=== PATIENT | female | born 1940 | race Caucasian/White ===

== ENCOUNTER 2020-01-05 22:41 | Inpatient (IN) | payer MEDICARE, OTHER, SELFPAY ==
--- NOTE | ~2020-01-05 | XR_ITS ---
EXAMINATION: XR lumbar spine 1V INDICATION: Severe back pain TECHNIQUE: Single AP view of the lumbar spine is obtained. COMPARISON: None available FINDINGS: There are 20 degrees of lumbar dextroscoliosis. Vertebral body heights appear normal on thi s single AP view. There is moderate lower lumbar facet osteoarthritis. There appears to be moderate l oss of intervertebral disc space height throughout the lumbar spine. Contrast from yesterday's CT exa mination opacifies the urinary bladder. The visualized lung bases are clear. IMPRESSION: 1. Lumbar dextroscoliosis and mild spondylosis without acute findings identified, sensitivity limited by single AP view. Reviewed, dictated and finalized at location B. IMPRESSION: 1. Lumbar dextroscoliosis and mild spondylosis without acute findings identifie d, sensitivity limited by single AP view.
--- NOTE | ~2020-01-05 | CT_ITS ---
EXAMINATION: CTA chest PE protocol DATE: 01/09/2020 07:15 INDICATION: Severe back pain, COVID positive TECHNIQUE: Computed tomography angiography (CTA) of the chest was performed with 100 mL Omnipaque-350 intravenous contrast timed to evaluate the pulmonary arteries. Coronal maximum intensity projection 3D-reconstructions were created by the technologist. The dose-length product (DLP) was 181.33 mGy-cm. Automated exposure control and iterative reconstruction technique were employed. COMPARISON: None. FINDINGS: The pulmonary arteries are well-opacified. No pulmonary embolism is identified. There is a 1.6 x 0.7 cm nodule of the right lung apex. A 3 mm nodule is present in the left lower lobe on image 96. There is a 6 mm nodule of the left lower lobe on image 40. There is mild atelectasis of the lung bases. No pleural effusion or pneumothorax is identified. Cardiomegaly is noted. There are no patholo gically enlarged thoracic lymph nodes. Calcified left hilar lymph nodes are consistent with old granu lomatous disease. There is moderate thoracic spondylosis. IMPRESSION: 1. No pulmonary embolism. 2. Bilateral lung nodules measuring up to 1.6 cm x 0.7 in the right lung apex. Follow-up CT in three months is recommended. Reviewed, dictated and finalized at location A.
--- NOTE | ~2020-01-05 | XR_ITS ---
EXAMINATION: XR chest 1V portable DATE: 01/13/2020 13:34 INDICATION: COVID-19 pneumonia. TECHNIQUE: A single frontal view of the chest was obtained. COMPARISON: Chest single view 01/09/2020, chest CT 01/09/2020 FINDINGS: There is mild scarring at right lung apex. No pleural effusion or pneumothorax. The heart s ize is normal. Calcified left hilar and mediastinal lymph nodes are consistent with old granulomatous disease. IMPRESSION: 1. Mild scarring at right lung apex. Reviewed, dictated and finalized at location B.
--- NOTE | ~2020-01-05 | XR_ITS ---
EXAMINATION: XR chest 1V portable INDICATION: Cough and shortness of breath TECHNIQUE: Portable AP chest at 2309 hours COMPARISON: 08/29/2011 FINDINGS: The lungs are hyperinflated but free of acute opacities. There is no pleural effusion or pn eumothorax. The cardiomediastinal silhouette is normal. IMPRESSION: 1. No acute cardiopulmonary abnormality. Reviewed, dictated and finalized at location A.
--- NOTE | ~2020-01-05 | XR_ITS ---
EXAMINATION: XR chest 1V portable INDICATION: Atrial fibrillation with RVR TECHNIQUE: Portable AP chest at 0608 hours COMPARISON: 01/05/2020 FINDINGS: There are minimal airspace opacities of the lung bases. No pleural effusion or pneumothorax is identified. The cardiomediastinal silhouette is normal. There is calcified atherosclerosis. IMPRESSION: 1. Minimal airspace opacities of the lung bases, consistent with atelectasis versus pneumonia. Reviewed, dictated and finalized at location A. IMPRESSION: 1. Minimal airspace opacities of the lung bases, consistent with atelectasis ve rsus pneumonia.
[2020-01-05 22:39] VITALS: BP 135/65; PULSE 87; RESP 20; TEMP 38.8; O2SAT 89; O2SAT 97
--- NOTE | 2020-01-05 22:41 | ECG_ITS ---
Measurements Intervals [place] Rate: 85 P: 65 AL: 157 QRS: -66 QRSD: 105 T: 59 QT: 353 QTc: 421 Interpretive Statements SINUS RHYTHM LEFT AXIS DEVIATION CANNOT RULE OUT SEPTAL INFARCT, AGE INDETERMINATE BASELINE ARTIFACT- I, II, III, AVF, V4-V6 ABNORMAL ECG Electronically Signed On 01-06-2020 6:56:13 CDT by Lucien Gaffney D.O.
--- NOTE | 2020-01-05 22:51 | ED.WEAKNESS ---
HPI - Weakness General Chief complaint: Weakness Stated complaint: fatigue Source: RN notes reviewed History of Present Illness HPI Narrative: Patient presents emergency department from home via EMS for weakness. Patient states she has been feeling weak for the past 6 days. States is been associated with decreased appetite. States that her is also been ill and is currently being evaluated in the emergency department for similar complaints. Patient denies having any chest pain shortness of breath or abdominal pain. Does note fever. Denies any other symptoms at this time Related Data Home Medications Medication Instructions Recorded Confirmed Unable to Obtain Home Medications 01/05/20 01/05/20 Allergies Allergy/AdvReac Type Severity Reaction Status Date / Time No Known Allergies Allergy Verified 01/05/20 23:10 Review of Systems Review of Systems: Narrative: Gen.: Reports fever Eyes: Denies eye pain or visual change ENT: Denies congestion Respiratory: Denies shortness of breath or cough CV: Denies chest pain or palpitations GI: Denies abdominal pain nausea, emesis or diarrhea Musculoskeletal: Denies back pain or muscle pain Neuro: Reports weakness Skin: Denies rash Except as documented, all other systems reviewed and negative COUNT INCLUDES THE [facility] Past Medical History Medical History (Updated 01/06/20 @ 00:29 by Aashish Salinas DO) Patient denies significant medical history Social History Social History (Updated 01/05/20 @ 23:35 by Aashish Salinas DO) Smoking status: Never smoker Exam Narrative: Exam Narrative: APPEARANCE: No acute distress, nontoxic, resting in bed EYES: PERRL HEENT: Normocephalic, atraumatic, oromucosa dry RESPIRATORY: No respiratory distress Clear to auscultation bilaterally with no rhonchi wheezing or rales. CARDIOVASCULAR: Regular rate and rhythm without murmurs rubs or gallops. ABDOMINAL: Soft, nontender, nondistended, no rebound or guarding MUSCULOSKELETAl: Moves all extremities. No clubbing, cyanosis or edema. NEURO: Awake and alert. Following commands, speech normal, no focal deficits SKIN:: Warm, dry. No rashes lesions or abrasions PSYCHIATRIC: Normal affect/mood, Course Course Emergency Course: Patient currently with O2 sat in the upper 80s on room air placed on 2 L nasal cannula with improvement. Patient's currently with similar complaints with fever and chest x-ray suspicious for COVID-19 patient also being tested Discussed with Dr. Kuhn presentation and work-up. Agrees with admission at this time Discussed with patient and family results of workup and diagnosis. Discussed need for admission. Patient and family understand and agree to current treatment plan Vital Signs Vital signs: Vital Signs Temperature 101.8 F H 01/05/20 22:39 Pulse Rate 87 01/05/20 22:39 Respiratory Rate 20 01/05/20 22:39 Blood Pressure 135/65 01/05/20 22:39 Pulse Oximetry 89 L 01/05/20 22:39 Temperature 99.0 F 01/06/20 00:25 Pulse Rate 70 01/06/20 00:25 Respiratory Rate 15 01/06/20 00:25 Blood Pressure 108/60 01/06/20 00:25 Pulse Oximetry 96 01/06/20 00:25 MDM - Weakness Lab Data Result diagrams: 01/05/20 23:09 01/05/20 23:09 Labs: Lab Results 01/05/20 01/05/20 01/05/20 Range/Units 23:09 23:09 23:09 WBC 5.2 (4.5-10.0) K/mm3 RBC 4.76 (4.2-5.4) M/mm3 Hgb 14.4 (12.0-15.0) g/dL Hct 43.7 (37.0-47.0) % MCV 91.8 (80-100) fl MCH 30.3 (26-34) pg MCHC 33.0 (32-36) g/dl RDW 12.2 (11.5-14.5) % Plt Count 206 (150-375) k/mm3 MPV 10.1 (7.4-10.4) fl Immature Gran % (Auto) 0.8 H (0-0.5) % Neut % (Auto) 59.8 (45.5-73.1) % Lymph % (Auto) 28.4 (18.3-44.2) % [place] % (Auto) 10.4 H (2.6-8.5) % Eos % (Auto) 0.0 (0-4.4) % Baso % (Auto) 0.6 (0.2-1.2) % Lymph # (Auto) 1.47 (0.9-3.2) K/mm3 [place] # (Auto) 0.5 (0.1-0.6) K/mm3 Eos # (Auto)
[2020-01-05] MEDS: SODIUM CHLORIDE 0.9% IV 1,000 ML 999 ML IV CONT (23:14)
[2020-01-05 23:19] LABS: Basophils Percent Auto 0.6 % (0.2-1.2); Hematocrit 43.7 % (37.0-47.0); Hemoglobin 14.4 g/dL (12.0-15.0); Immature Granulocyte Absolute 0.04 K/mm3 (0.00-0.031); Immature Granulocyte Percent A 0.8 % (0-0.5); Lymphocytes Absolute Auto 1.47 K/mm3 (0.9-3.2); Lymphocytes Percent Auto 28.4 % (18.3-44.2); Mean Corpuscular Hemoglobin 30.3 pg (26-34); Mean Corpuscular Volume 91.8 fl (80-100); Mean Platelet Volume 10.1 fl (7.4-10.4); Monocytes Absolute Auto 0.5 K/mm3 (0.1-0.6); Monocytes Percent Auto 10.4 % (2.6-8.5); Neutrophils Absolute Auto 3.1 K/mm3 (1.3-6.7); Neutrophils Percent Auto 59.8 % (45.5-73.1); Platelet Count Result 206 k/mm3 (150-375); Red Blood Count 4.76 M/mm3 (4.2-5.4); Red Cell Distribution Width 12.2 % (11.5-14.5); White Blood Count 5.2 K/mm3 (4.5-10.0)
[2020-01-05 23:27] LABS: Prothrombin Time 13.1 Seconds (11.1-14.7)
[2020-01-05 23:30] LABS: Alanine Aminotransferase 20 U/L (4-35); Alkaline Phosphatase 69 U/L (38-126); Anion Gap 12.7 mmol/L (7-16); Aspartate Amino Transferase 34 U/L (14-36); Bilirubin,Total 0.5 mg/dL (0.2-1.3); Blood Urea Nitrogen 24 mg/dL (7-17); Calcium 8.6 mg/dL (8.4-10.2); Carbon Dioxide 25 mmol/L (22-30); Chloride 97 mmol/L (98-107); Estimated Glomerular Filt Rate > 60; Glucose 91 mg/dL (65-105); Potassium 4.7 mmol/L (3.4-5.0); Sodium 130 mmol/L (137-145)
[2020-01-05 23:39] VITALS: BP 118/64; PULSE 77; RESP 18; O2SAT 98
[2020-01-05 23:41] VITALS: TEMP 37.2
[2020-01-05 23:42] VITALS: TEMP 37.2
[2020-01-05 23:57] LABS: Lactic Acid Reflex 0.5 mmol/L (0.7-2.1)
[2020-01-06] VITALS (19 sets, daily range): BP systolic 95–138; BP diastolic 48–80; PULSE 61–79; RESP 15–22; TEMP 36.6–37.2; O2SAT 87–97; BMI 19.9
--- NOTE | 2020-01-06 01:00 | ADMGEN ---
This patient, Marie Moreira, was admitted to 3 [facility] Surg Room 330-02. Patient/family oriented to hospital policies and general routines including ID bracelet, bed and alarms, visiting hours, pain management, procedures, bathroom and other care routines, personal items, smoking policy, room service/diet, and visiting hours. Valuables list has been completed. Information on how to activate the Rapid Response Team has been discussed. Patient/Family are encouraged to report perceived risks to care and to ask questions if they do not understand what they are told or what they should do.
--- NOTE | 2020-01-06 01:38 | PM.IMHP ---
H&P: HPI History of Present Illness Date/Time: 01/06/20 01:38 Chief complaint: COVID-19 suspected, acute respiratory failure with Narrative: This is an 79 year old female who is previously known to be healthy who presented to the hospital with her angelo complaining of generalized weakness and decreased appetite for the past 5 days. She denies any shortness of breath, cough, fevers, chills, chest pain, sore throat, abdominal pain, dysuria, hematuria, rectal bleeding or LE swelling. The patient was found to be desaturating down to the 80s in the ER tonight and required supplemental oxyge. The patient was tested for COVID-19 and we were asked to admit the patient to the hospital for further care. She denies any other symptoms. Review of Systems Review of Systems: All systems reviewed & are unremarkable except as noted in HPI and below PMFSH Past Medical History Medical History Patient denies significant medical history Social History Social History Smoking packs per day: 1 Smoking cigarettes per day: 20.0 Years smoked: 20 Smoking pack-years: 20.00 Smoking status: Former smoker Tobacco type: cigarettes Alcohol intake: never Substance use: never Gender identity (if verbalized by the patient): Female Spiritual care concerns: No Comments past surgical and family history are reviewed and are noncontributory. Meds Home Medications and Allergies Home Medications Medication Instructions Recorded Confirmed Type albuterol sulfate INHALATION PRN 01/06/20 History gabapentin 100 mg PO DAILY 01/06/20 01/06/20 History lisinopril 20 mg PO DAILY 01/06/20 01/06/20 History Allergies Allergy/AdvReac Type Severity Reaction Status Date / Time No Known Allergies Allergy Verified 01/05/20 23:10 Vital Signs Vital Signs - 24 hr 01/05/20 22:39 01/05/20 23:39 01/05/20 23:41 Temperature 38.8 C H 37.2 C Pulse Rate 87 77 Respiratory Rate 20 18 Blood Pressure 135/65 118/64 Pulse Oximetry 97 98 01/05/20 23:42 01/06/20 00:19 01/06/20 00:23 Temperature 37.2 C 37.2 C 37.2 C Pulse Rate 67 69 Respiratory Rate 17 20 Blood Pressure 95/48 L 108/60 Pulse Oximetry 96 97 01/06/20 00:25 01/06/20 00:40 Temperature 37.2 C 36.8 C Pulse Rate 70 64 Respiratory Rate 15 18 Blood Pressure 108/60 131/63 Pulse Oximetry 96 97 Exam Const: General: cooperative, no acute distress, alert, awake and other (on 2 liters of oxygen via NC ) Nutritional Appearance: well nourished Orientation/consciousness: patient oriented x3 HENMT: Head: normal to inspection General nose exam: Normal external nose present Face and sinus: normal facial exam Mouth: Yes Normal oral and palatal mucosa present and Yes oropharynx normal Eyes: Pupils: Equal, round and reactive pupils present EOM: EOMs intact bilaterally Neck: Neck: supple and no JVD Thyroid: thyroid normal Lymphatic: lymphadenopathy not noted Resp: Effort & Inspection: normal respiratory effort Auscultation: crackles and diminished lung sounds Cardio: Rate: regular rate Rhythm: regular rhythm Heart sounds: no murmurs GI: Inspection: normal to inspection Auscultation: normal bowel sounds Skin: General skin exam: normal color and no rashes or lesions noted Neuro: General: patient oriented x3 Cranial nerves: Yes CN's II-XII intact bilaterally and Yes Equal, round and reactive pupils present Speech: normal speech Motor exam (neuro): 5/5 motor strength present throughout Sensory Exam: normal sensation Extrem: General: normal to inspection and no edema Psych: Mental Status: mental status grossly normal Affect: normal affect H&P: Results Labs Labs: Short CBC 01/05/20 Range/Units 23:09 WBC 5.2 (4.5-10.0) K/mm3 Hgb 14.4 (12.0-15.0) g/dL Hct 43.7 (37.0-47.0) % Plt Count 206 (150-375) k/mm3 BMP
--- NOTE | 2020-01-06 04:51 | ECG_ITS ---
Measurements Intervals [place] Rate: 46 P: 70 SC: 173 QRS: -66 QRSD: 103 T: 50 QT: 394 QTc: 347 Interpretive Statements SINUS BRADYCARDIA ATRIAL PREMATURE COMPLEXES LEFT AXIS DEVIATION BASELINE ARTIFACT- AVR, AVL, AVF BORDERLINE ECG Electronically Signed On 01-06-2020 6:59:32 CDT by Lucien Gaffney D.O.
[2020-01-06 06:20] LABS: Basophils Percent Auto 0.9 % (0.2-1.2); Hematocrit 40.7 % (37.0-47.0); Hemoglobin 13.1 g/dL (12.0-15.0); Immature Granulocyte Absolute 0.05 K/mm3 (0.00-0.031); Immature Granulocyte Percent A 1.1 % (0-0.5); Lymphocytes Absolute Auto 1.73 K/mm3 (0.9-3.2); Lymphocytes Percent Auto 36.9 % (18.3-44.2); Mean Corpuscular HGB Conc 32.2 g/dl (32-36); Mean Corpuscular Hemoglobin 30.1 pg (26-34); Mean Corpuscular Volume 93.6 fl (80-100); Mean Platelet Volume 10.1 fl (7.4-10.4); Monocytes Absolute Auto 0.5 K/mm3 (0.1-0.6); Monocytes Percent Auto 10.7 % (2.6-8.5); Neutrophils Absolute Auto 2.4 K/mm3 (1.3-6.7); Neutrophils Percent Auto 50.4 % (45.5-73.1); Platelet Count Result 189 k/mm3 (150-375); Red Blood Count 4.35 M/mm3 (4.2-5.4); Red Cell Distribution Width 12.1 % (11.5-14.5); White Blood Count 4.7 K/mm3 (4.5-10.0)
[2020-01-06 06:32] LABS: Alanine Aminotransferase 17 U/L (4-35); Albumin Level 3.5 g/dL (3.5-5.1); Alkaline Phosphatase 57 U/L (38-126); Anion Gap 13.4 mmol/L (7-16); Aspartate Amino Transferase 31 U/L (14-36); Bilirubin,Total 0.3 mg/dL (0.2-1.3); Blood Urea Nitrogen 23 mg/dL (7-17); Calcium 8.1 mg/dL (8.4-10.2); Carbon Dioxide 25 mmol/L (22-30); Chloride 100 mmol/L (98-107); Estimated CRCL calculation 53 ml/min; Estimated Glomerular Filt Rate > 60; Glucose 80 mg/dL (65-105); Potassium 4.4 mmol/L (3.4-5.0); Sodium 134 mmol/L (137-145)
[2020-01-06 08:09] LABS: CRP 1.6 mg/dL (<1.0)
[2020-01-06] MEDS: ALBUTEROL SULFATE (*SP) AEROSOL 1 PUFF 2 PUFF INHALATION ×4 (08:26→21:16)
[2020-01-06 12:00] LABS: SARS-CoV-2 RNA PCR Positive
--- NOTE | 2020-01-06 12:43 | PC.NURSE ---
Called and notified Dr. Espinoza that patient COVID test was positive.
--- NOTE | 2020-01-06 14:35 | PM.IMPN ---
Progress Note: A&P Assessment and Plan (1) Acute respiratory failure with hypoxia: Code(s): J96.01 - Acute respiratory failure with hypoxia Status: Acute Assessment and Plan: Admit to med-surg. supplemental oxygen as needed to maintain pulse ox >94%. Wean off of oxygen when possible. 01/06/20 14:35 patient is 79-year-old female presented emergency complaint fatigue tired, feverish while in the emergency depart patient was requiring oxygen is is desaturating while on the floor patient is also requiring oxygen to maintain her pulse ox, initially when presented patient had a fever of 101.8, patient COVID test is positive, complains of cough shortness of breath and fever, will start the patient on Remdesivir and dexamethasone per pharmacy protocol, will continue to monitor LFT and kidney function, will continue to monitor patient oxygen requirement and fever patient is isolation (2) Suspected 2019-nCoV infection: Code(s): Z20.828 - Contact with and (suspected) exposure to other viral communicable diseases Status: Acute Assessment and Plan: continue droplet isolation. Supportive care. COVID-19 result pending. Subjective Date/time seen: 01/06/20 14:35 patient is 79-year-old female presented emergency complaint fatigue tired, feverish while in the emergency depart patient was requiring oxygen is is desaturating while on the floor patient is also requiring oxygen to maintain her pulse ox, initially when presented patient had a fever of 101.8, patient COVID test is positive, complains of cough shortness of breath and fever, will start the patient on Remdesivir and dexamethasone per pharmacy protocol, will continue to monitor LFT and kidney function, will continue to monitor patient oxygen requirement and fever patient is isolation Review of Systems Review of Systems: All systems reviewed & are unremarkable except as noted in HPI and below Exam Narrative: Exam Narrative: patient is COVID positive patient is seen in the room but not examine, temperature is 98.5?, pulse is 74, respiratory is 18, pulse ox is 94% a 2 L nasal cannula, blood pressure 126/54. Const: General: comfortable and no acute distress HENMT: General nose exam: Normal nares present Eyes: Sclera: sclerae normal Resp: Effort & Inspection: normal respiratory effort GI: Other: not distended Skin: General skin exam: normal color Neuro: Speech: normal speech Extrem: General: normal to inspection Psych: Affect: Anxious affect present Objective Data Vital Signs Vital Signs: Vital Signs - 24 hr 01/05/20 22:39 01/05/20 23:39 01/05/20 23:41 Temperature 101.8 F H 99.0 F Pulse Rate 87 77 Respiratory Rate 20 18 Blood Pressure 135/65 118/64 Pulse Oximetry 97 98 01/05/20 23:42 01/06/20 00:19 01/06/20 00:23 Temperature 99.0 F 99.0 F 99.0 F Pulse Rate 67 69 Respiratory Rate 17 20 Blood Pressure 95/48 L 108/60 Pulse Oximetry 96 97 01/06/20 00:25 01/06/20 00:40 01/06/20 02:00 Temperature 99.0 F 98.3 F 98.8 F Pulse Rate 70 64 61 Respiratory Rate 15 18 18 Blood Pressure 108/60 131/63 98/55 L Pulse Oximetry 96 97 97 01/06/20 02:42 01/06/20 02:47 01/06/20 06:00 Temperature 98.6 F Pulse Rate 69 Respiratory Rate 18 Blood Pressure 119/61 Pulse Oximetry 87 L 92 96 01/06/20 08:00 01/06/20 08:33 01/06/20 10:00 Temperature 98.5 F Pulse Rate 67 74 Respiratory Rate 18 Blood Pressure 126/54 L Pulse Oximetry 93 92 94 01/06/20 12:00 Temperature Pulse Rate 79 Respiratory Rate Blood Pressure Pulse Oximetry Intake/Output Intake/Output: Intake & Output 01/03/20 01/04/20 01/05/20 01/06/20 23:59 23:59 23:59 23:59 Intake Total 1100 200 Balance 1100 200 Meds/Results Medications: Active Medications Generic Name Dose Route Start Last Admin Trade Name Freq PRN Reason Stop Dose Admin Albuterol 2 puff 01/06/20 08:00 01/06/20 12:04 Proventil Hfa INH
[2020-01-06] MEDS: REMDESIVIR 200 MG/NS 250 ML 200 MG/250 ML BAG 250 MG IVPB (16:16)
[2020-01-06] MEDS: LIDOCAINE 5% PATCH 2 PATCH TRANSDERM (16:16)
[2020-01-06] MEDS: DEXAMETHASONE 2 MG TABLET 6 MG PO (16:16)
[2020-01-06] MEDS: ACETAMINOPHEN 325 MG TABLET 650 MG PO (16:17)
[2020-01-06] MEDS: KETOROLAC 30 MG/ML VIAL (*BKC) 15 MG IV PUSH (21:54)
[2020-01-07] VITALS (17 sets, daily range): BP systolic 131–150; BP diastolic 61–86; PULSE 58–95; RESP 18–20; TEMP 36.4–36.9; O2SAT 73–97
[2020-01-07] MEDS: ACETAMINOPHEN 325 MG TABLET 650 MG PO ×2 (02:38→11:49)
[2020-01-07 06:29] LABS: Basophils Percent Auto 0.7 % (0.2-1.2); Hematocrit 45.2 % (37.0-47.0); Hemoglobin 14.8 g/dL (12.0-15.0); Immature Granulocyte Absolute 0.04 K/mm3 (0.00-0.031); Immature Granulocyte Percent A 1.3 % (0-0.5); Lymphocytes Absolute Auto 1.29 K/mm3 (0.9-3.2); Lymphocytes Percent Auto 42.4 % (18.3-44.2); Mean Corpuscular HGB Conc 32.7 g/dl (32-36); Mean Corpuscular Volume 91.7 fl (80-100); Mean Platelet Volume 10.1 fl (7.4-10.4); Monocytes Absolute Auto 0.2 K/mm3 (0.1-0.6); Monocytes Percent Auto 6.6 % (2.6-8.5); Neutrophils Absolute Auto 1.5 K/mm3 (1.3-6.7); Platelet Count Result 208 k/mm3 (150-375); Red Blood Count 4.93 M/mm3 (4.2-5.4); Red Cell Distribution Width 11.9 % (11.5-14.5)
[2020-01-07 08:20] LABS: Alanine Aminotransferase 21 U/L (4-35); Albumin Level 3.8 g/dL (3.5-5.1); Alkaline Phosphatase 65 U/L (38-126); Anion Gap 14.7 mmol/L (7-16); Aspartate Amino Transferase 34 U/L (14-36); Bilirubin,Total 0.3 mg/dL (0.2-1.3); Blood Urea Nitrogen 24 mg/dL (7-17); CRP 1.4 mg/dL (<1.0); Calcium 8.5 mg/dL (8.4-10.2); Carbon Dioxide 25 mmol/L (22-30); Chloride 100 mmol/L (98-107); Estimated CRCL calculation 53 ml/min; Estimated Glomerular Filt Rate > 60; Glucose 113 mg/dL (65-105); Potassium 4.7 mmol/L (3.4-5.0); Sodium 135 mmol/L (137-145)
[2020-01-07] MEDS: DEXAMETHASONE 2 MG TABLET 6 MG PO (08:36)
[2020-01-07] MEDS: LIDOCAINE 5% PATCH 2 PATCH TRANSDERM (08:36)
[2020-01-07] MEDS: ENOXAPARIN 40 MG/0.4 ML SYRINGE SUB-Q (08:36)
[2020-01-07] MEDS: ALBUTEROL SULFATE (*SP) AEROSOL 1 PUFF 2 PUFF INHALATION ×4 (09:30→21:54)
--- NOTE | 2020-01-07 14:52 | PM.IMPN ---
Progress Note: A&P Assessment and Plan (1) Acute respiratory failure with hypoxia: Code(s): J96.01 - Acute respiratory failure with hypoxia Status: Acute Assessment and Plan: Admit to med-surg. supplemental oxygen as needed to maintain pulse ox >94%. Wean off of oxygen when possible. 01/07/20 14:52 patient is 79-year-old female presented emergency complaint fatigue tired, feverish while in the emergency depart patient was requiring oxygen is is desaturating while on the floor patient is also requiring oxygen to maintain her pulse ox, initially when presented patient had a fever of 101.8, patient COVID test is positive, complains of cough shortness of breath and fever, on 01/05 stared the patient on Remdesivir and dexamethasone per pharmacy protocol, today patient states feeling better not a short of breath denies any fever or chills, will continue to monitor, HR, LFTand kidney function which are stable, will continue to monitor patient oxygen requirement and fever patient is in isolation (2) Suspected 2019-nCoV infection: Code(s): Z20.828 - Contact with and (suspected) exposure to other viral communicable diseases Status: Acute Assessment and Plan: continue droplet isolation. Supportive care. COVID-19 is positive. Subjective Date/time seen: 01/07/20 14:52 patient is 79-year-old female presented emergency complaint fatigue tired, feverish while in the emergency depart patient was requiring oxygen is is desaturating while on the floor patient is also requiring oxygen to maintain her pulse ox, initially when presented patient had a fever of 101.8, patient COVID test is positive, complains of cough shortness of breath and fever, on 01/05 stared the patient on Remdesivir and dexamethasone per pharmacy protocol, today patient states feeling better not a short of breath denies any fever or chills, will continue to monitor, HR, LFTand kidney function which are stable, will continue to monitor patient oxygen requirement and fever patient is in isolation Review of Systems Review of Systems: All systems reviewed & are unremarkable except as noted in HPI and below Exam Narrative: Exam Narrative: patient is COVID positive patient is seen in the room but not examine, temperature is 97.6, pulse is 65, respiratory is 18, pulse ox is 97% a 2 L nasal cannula, blood pressure 142/62. Const: General: comfortable and no acute distress HENMT: General nose exam: Normal nares present Mouth: Yes moist mucous membranes Eyes: Sclera: sclerae normal Neck: Other: no retraction Resp: Effort & Inspection: normal respiratory effort GI: Other: not distended Skin: General skin exam: normal color Neuro: Speech: normal speech Extrem: General: normal to inspection Psych: Affect: Anxious affect present Objective Data Vital Signs Vital Signs: Vital Signs - 24 hr 01/06/20 16:00 01/06/20 16:34 01/06/20 18:00 Temperature 98.7 F Pulse Rate 72 66 Respiratory Rate 18 Blood Pressure 116/54 L Pulse Oximetry 96 93 01/06/20 20:00 01/06/20 21:18 01/06/20 22:00 Temperature 97.9 F Pulse Rate 70 71 62 Respiratory Rate 22 H 20 Blood Pressure 138/80 Pulse Oximetry 95 95 01/07/20 00:00 01/07/20 02:00 01/07/20 04:00 Temperature 97.6 F Pulse Rate 58 L 68 65 Respiratory Rate 20 Blood Pressure 149/86 H Pulse Oximetry 96 01/07/20 06:00 01/07/20 08:00 01/07/20 09:31 Temperature 98.2 F Pulse Rate 61 62 Respiratory Rate 20 Blood Pressure 150/74 H Pulse Oximetry 97 96 96 01/07/20 10:00 01/07/20 12:00 01/07/20 12:45 Temperature 97.6 F Pulse Rate 95 65 Respiratory Rate 18 Blood Pressure 142/62 H Pulse Oximetry 73 L 97 Intake/Output Intake/Output: Intake & Output 01/04/20 01/05/20 01/06/20 01/07/20 23:59 23:59 23:59 23:59 Intake Total 1100 1330 400 Output Total 200 Balance 1100 1130 400 Meds/Results Medications: Active Medicati
[2020-01-07] MEDS: REMDESIVIR 100 MG/NS 250 ML 100 MG/250 ML BAG 250 MG IVPB (16:19)
[2020-01-08] VITALS (13 sets, daily range): BP systolic 129–168; BP diastolic 59–76; PULSE 55–67; RESP 16–22; TEMP 36.5–36.8; O2SAT 90–98
[2020-01-08 06:07] LABS: Basophils Percent Auto 0.7 % (0.2-1.2); Hematocrit 41.1 % (37.0-47.0); Hemoglobin 13.6 g/dL (12.0-15.0); Immature Granulocyte Absolute 0.08 K/mm3 (0.00-0.031); Immature Granulocyte Percent A 1.8 % (0-0.5); Lymphocytes Absolute Auto 1.54 K/mm3 (0.9-3.2); Lymphocytes Percent Auto 33.8 % (18.3-44.2); Mean Corpuscular HGB Conc 33.1 g/dl (32-36); Mean Corpuscular Hemoglobin 29.9 pg (26-34); Mean Corpuscular Volume 90.3 fl (80-100); Mean Platelet Volume 10.3 fl (7.4-10.4); Monocytes Absolute Auto 0.5 K/mm3 (0.1-0.6); Monocytes Percent Auto 11.2 % (2.6-8.5); Neutrophils Absolute Auto 2.4 K/mm3 (1.3-6.7); Neutrophils Percent Auto 52.5 % (45.5-73.1); Platelet Count Result 211 k/mm3 (150-375); Red Blood Count 4.55 M/mm3 (4.2-5.4); Red Cell Distribution Width 11.9 % (11.5-14.5); White Blood Count 4.6 K/mm3 (4.5-10.0)
[2020-01-08 06:16] LABS: Alanine Aminotransferase 17 U/L (4-35); Albumin Level 3.3 g/dL (3.5-5.1); Alkaline Phosphatase 52 U/L (38-126); Anion Gap 10.6 mmol/L (7-16); Aspartate Amino Transferase 35 U/L (14-36); Bilirubin,Total 0.3 mg/dL (0.2-1.3); Blood Urea Nitrogen 24 mg/dL (7-17); Calcium 8.6 mg/dL (8.4-10.2); Carbon Dioxide 24 mmol/L (22-30); Chloride 104 mmol/L (98-107); Estimated CRCL calculation 71 ml/min; Estimated Glomerular Filt Rate > 60; Glucose 121 mg/dL (65-105); Potassium 4.6 mmol/L (3.4-5.0); Sodium 134 mmol/L (137-145)
[2020-01-08] MEDS: ALBUTEROL SULFATE (*SP) AEROSOL 1 PUFF 2 PUFF INHALATION ×4 (08:27→21:32)
[2020-01-08] MEDS: ENOXAPARIN 40 MG/0.4 ML SYRINGE SUB-Q (09:10)
[2020-01-08] MEDS: DEXAMETHASONE 2 MG TABLET 6 MG PO (09:10)
[2020-01-08] MEDS: LIDOCAINE 5% PATCH 2 PATCH TRANSDERM (09:11)
[2020-01-08] MEDS: REMDESIVIR 100 MG/NS 250 ML 100 MG/250 ML BAG 250 MG IVPB (15:23)
--- NOTE | 2020-01-08 16:39 | PM.IMPN ---
Progress Note: A&P Assessment and Plan (1) Acute respiratory failure with hypoxia: Code(s): J96.01 - Acute respiratory failure with hypoxia Status: Acute Assessment and Plan: Admit to med-surg. supplemental oxygen as needed to maintain pulse ox >94%. Wean off of oxygen when possible. 01/08/20 16:39 patient is 79-year-old female presented emergency complaint fatigue tired, feverish while in the emergency depart patient was requiring oxygen is is desaturating while on the floor patient is also requiring oxygen to maintain her pulse ox, initially when presented patient had a fever of 101.8, patient COVID test is positive, complains of cough shortness of breath and fever, on 01/05 stared the patient on Remdesivir and dexamethasone per pharmacy protocol, today patient states feeling better not a short of breath denies any fever or chills, will continue to monitor, HR, LFTand kidney function which are stable, today patient was taken off oxygen, patient remains clinically stable and her O2 saturation close to normal on room air, will continue present managed 2 more days will continue to monitor patient oxygen requirement and fever patient is in isolation, if remains clinically stable on MondayJanuary 09, will discharge the patient home, (2) Suspected 2019-nCoV infection: Code(s): Z20.828 - Contact with and (suspected) exposure to other viral communicable diseases Status: Acute Assessment and Plan: continue droplet isolation. Supportive care. COVID-19 is positive. Subjective Date/time seen: 01/08/20 16:39 patient is 79-year-old female presented emergency complaint fatigue tired, feverish while in the emergency depart patient was requiring oxygen is is desaturating while on the floor patient is also requiring oxygen to maintain her pulse ox, initially when presented patient had a fever of 101.8, patient COVID test is positive, complains of cough shortness of breath and fever, on 01/05 stared the patient on Remdesivir and dexamethasone per pharmacy protocol, today patient states feeling better not a short of breath denies any fever or chills, will continue to monitor, HR, LFTand kidney function which are stable, today patient was taken off oxygen, patient remains clinically stable and her O2 saturation close to normal on room air, will continue present managed 2 more days will continue to monitor patient oxygen requirement and fever patient is in isolation, if remains clinically stable on MondayJanuary 09, will discharge the patient home, Review of Systems Review of Systems: All systems reviewed & are unremarkable except as noted in HPI and below Exam Narrative: Exam Narrative: patient is COVID positive patient is seen in the room but not examine, temperature is 98.3, pulse is 64, respiratory is 16, pulse ox is 93% RA blood pressure 153/59. Const: General: comfortable and no acute distress HENMT: General nose exam: Normal nares present Eyes: Sclera: sclerae normal Neck: Other: no retraction Resp: Effort & Inspection: normal respiratory effort GI: Other: not distanted Skin: General skin exam: normal color Neuro: Speech: normal speech Extrem: General: normal to inspection Psych: Affect: Anxious affect present Objective Data Vital Signs Vital Signs: Vital Signs - 24 hr 01/07/20 17:38 01/07/20 18:00 01/07/20 20:00 Temperature 98.4 F 98 F Pulse Rate 72 60 Respiratory Rate 18 18 Blood Pressure 131/61 135/64 Pulse Oximetry 92 96 92 01/07/20 21:59 01/07/20 22:40 01/07/20 22:41 Temperature Pulse Rate 64 Respiratory Rate Blood Pressure Pulse Oximetry 90 88 L 93 01/08/20 00:00 01/08/20 02:00 01/08/20 04:00 Temperature 97.8 F Pulse Rate 59 L 67 55 L Respiratory Rate 20 Blood Pressure 147/70 H Pulse Oximetry 97 98 01/08/20 06:00 01/08/20 08:00 01/08/20 08:29 Temperature 97.7 F Pulse Rate 62 64 Respiratory Rate 22 H Bloo
[2020-01-08] MEDS: hydrALAZINE HCL 20 MG/ML VIAL 10 MG IV PUSH (22:46)
[2020-01-09] VITALS (17 sets, daily range): BP systolic 107–159; BP diastolic 68–95; PULSE 46–155; RESP 16–93; TEMP 36.2–37; O2SAT 20–96
--- NOTE | 2020-01-09 03:54 | PM.EVENT ---
Event Note Event Note Event Note: RAPID RESPONSE NOTE This is an 79 year old female who is being treated for acute respiratory failure and COVID-19++ who tonight suddenly developed severe tachycardia after going to the bathroom. The patient has been complaining of back pain all night which is normal for her as she has chronic back pain. Rapid response was called as the patient's heart rate was up in the 190s. On arrival to bedside the patient denies any chest pain or shortness of breath. She is only complaining of ongoing back pain. EKG was obtained which demonstrated atrial fibrillation w/ RVR. She has no previous history of atrial fibrillation. Blood pressure and oxygen sats are stable. a/p New onset Atrial Fibrillation w/ RVR - CHADSVAsc score 4, Acute Respiratory failure, COVID-19++ -Transfer to IMU -Continue telemetry -Check CBCd, BMP, magnesium, TSH w/ reflex T4, Troponin -Cardizem IV bolus and IV drip for rate control -Therapeutic Lovenox SC for anticoagulation -Check Echocardiogram in am -Cardiology consult -Continue oxygen supplementation, Bronchodilators, steroid therapy, Remdesivir therapy. - I will reassess as needed overnight. Total time of Rapid response exceeded 32 minutes.
--- NOTE | 2020-01-09 03:59 | ECHO_ITS ---
Patient Info Name: Marie Moreira Age: 79 years : 1940 Gender: Female Ht: 69 in Wt: 135 lbs BSA: 1.72 m2 HR: 100 bpm BP: 159 / 82 mmHg Technical Quality: Good Exam Date: 01/09/2020 8:38 AM Exam Location: [facility] Patient Status: Inpatient Admit Date: 01/06/2020 Staff Ordering Physician: Lauri Kuhn MD [employer] Teacher: Shukri Hernandez RDCS, RT Attending Provider: Lauri Kuhn MD Referring Physician: Bam NIX; Exam Type: CA echo doppler color flow Study Info Indications I48.1 - Persistent atrial fibrillation Complete two-dimensional, color flow and Doppler transthoracic echocardiogram is performed. Summary 1. Left ventricular systolic function is normal, estimated at 60-65%. 2. There is mildly increased left ventricular wall thickness. 3. There is mild tricuspid valve regurgitation. 4. No pulmonary hypertension, estimated pulmonary arterial systolic pressure is 29 mmHg. 5. There is mild aortic valve sclerosis. 6. There is mild aortic valve regurgitation. 7. There is mild pulmonic regurgitation. Left Ventricle Left ventricular chamber dimension is normal. Left ventricular systolic function is normal, estimated at 60-65%. There is mildly increased left ventricular wall thickness. Left ventricular septal wall motion is normal. The left ventricular diastolic function is abnormal. Right Ventricle Right ventricular chamber dimension is normal. Right ventricular systolic function is normal. Left Atria Left atrial chamber dimension is normal. Right Atria Right atrial chamber dimension is normal. Atrial Septum Intact interatrial septum visualized by color flow imaging. Aortic Valve The aortic valve is trileaflet. There is mild aortic valve sclerosis. There is no aortic valve stenosis. There is mild aortic valve regurgitation. Pulmonic Valve The pulmonic valve is not well visualized. There is no pulmonic valve stenosis. There is mild pulmonic regurgitation. Mitral Valve The mitral valve has normal leaflets. There is no mitral valve stenosis. There is no mitral valve regurgitation. Tricuspid Valve The tricuspid valve leaflets are normal. There is no significant tricuspid valve stenosis. There is mild tricuspid valve regurgitation. No pulmonary hypertension, estimated pulmonary arterial systolic pressure is 29 mmHg. Pericardium/Pleural The pericardium appears normal. There is no pericardial effusion. Inferior Vena Cava Normal inferior vena cava with >50% collapse upon inspiration consistent with normal right atrial pressure, 5 mmHg. Aorta The aortic root size at the sinus of Valsalva is normal. The prox ascending aorta size is normal. Left Ventricular Outflow Tract Name Value Normal LVOT 2D LVOT Diameter 2.0 cm LVOT Doppler LVOT Peak Gradient 2 mmHg LVOT Mean Gradient 1 mmHg LVOT VTI 19 cm LVOT VTI/AV VTI Ratio 0.7 LVOT Stroke Volume 62 ml LVOT CO 4.6
[2020-01-09] MEDS: dilTIAZem HCl INJ 25 MG/5 ML VIAL 10 MG IV PUSH ×2 (04:12→05:29)
--- NOTE | 2020-01-09 04:16 | PC.NURSE ---
This patient, Marie Moreira, was transferred to [ ICU] on 01/09/20 at 0400. Personal belongings sent with patient. Belongings list checked and signed with receiving. Report given to [Eduarda]. Appropriate documentation sent with patient.
--- NOTE | 2020-01-09 04:24 | PC.NURSE ---
This patient, Marie Moreira, was received from [ 330] on 01/09/20 at 0424. Personal belongings list checked and signed. Patient/family oriented to unit policies and routines
[2020-01-09] MEDS: ENOXAPARIN 60 MG/0.6 ML SYRINGE SUB-Q (04:28)
[2020-01-09 04:29] LABS: Basophils Percent Auto 0.5 % (0.2-1.2); Hematocrit 45.9 % (37.0-47.0); Hemoglobin 15.5 g/dL (12.0-15.0); Immature Granulocyte Absolute 0.08 K/mm3 (0.00-0.031); Immature Granulocyte Percent A 1.4 % (0-0.5); Lymphocytes Absolute Auto 2.05 K/mm3 (0.9-3.2); Lymphocytes Percent Auto 34.7 % (18.3-44.2); Mean Corpuscular HGB Conc 33.8 g/dl (32-36); Mean Corpuscular Hemoglobin 30.3 pg (26-34); Mean Corpuscular Volume 89.8 fl (80-100); Mean Platelet Volume 10.3 fl (7.4-10.4); Monocytes Absolute Auto 0.6 K/mm3 (0.1-0.6); Monocytes Percent Auto 10.3 % (2.6-8.5); Neutrophils Absolute Auto 3.1 K/mm3 (1.3-6.7); Neutrophils Percent Auto 53.1 % (45.5-73.1); Platelet Count Result 257 k/mm3 (150-375); Red Blood Count 5.11 M/mm3 (4.2-5.4); White Blood Count 5.9 K/mm3 (4.5-10.0)
[2020-01-09 04:43] LABS: Alanine Aminotransferase 21 U/L (4-35); Alkaline Phosphatase 69 U/L (38-126); Anion Gap 14.1 mmol/L (7-16); Aspartate Amino Transferase 31 U/L (14-36); Bilirubin,Total 0.4 mg/dL (0.2-1.3); Blood Urea Nitrogen 21 mg/dL (7-17); CRP 0.6 mg/dL (<1.0); Calcium 9.4 mg/dL (8.4-10.2); Carbon Dioxide 25 mmol/L (22-30); Chloride 101 mmol/L (98-107); Estimated CRCL calculation 60 ml/min; Estimated Glomerular Filt Rate > 60; Glucose 116 mg/dL (65-105); Potassium 4.1 mmol/L (3.4-5.0); Sodium 136 mmol/L (137-145)
[2020-01-09 04:44] LABS: Magnesium 1.9 mg/dL (1.6-2.3)
[2020-01-09 04:56] LABS: Troponin I < 0.012 ng/mL (0.000-0.034)
[2020-01-09 05:43] LABS: Thyroid Stimulating Hormone Reflex 0.448 uIU/mL (0.465-4.68)
[2020-01-09 06:35] LABS: Free T4 Free Thyroxine Reflex 1.21 ng/dL (0.78-2.19)
[2020-01-09 07:54] LABS: Total Triiodothyronine (T3) 0.83 NG/ML (0.97-1.69)
[2020-01-09] MEDS: ALBUTEROL SULFATE (*SP) AEROSOL 1 PUFF 2 PUFF INHALATION ×4 (08:30→21:04)
[2020-01-09] MEDS: LIDOCAINE 5% PATCH 2 PATCH TRANSDERM (09:56)
[2020-01-09] MEDS: DEXAMETHASONE 2 MG TABLET 6 MG PO (09:57)
--- NOTE | 2020-01-09 11:55 | WPDCN ---
Assessment and Plan Assessment and plan (1) Atrial fibrillation with RVR: Code(s): I48.91 - Unspecified atrial fibrillation Status: Acute Assessment and Plan: Patient has new onset AFib RVR. She has several risk factors: being an octogenarian, with hypertension, and sick with COVID-19. No significant valve disease, and normal LV systolic function but she does have diastolic dysfunction and minor thyroid disease. Heart rate has improved but still somewhat tachycardic , on Cardizem 10 milligrams/hour. Will increase to 15 milligrams/hour and hope to transition to p.o. Cardizem over the next 24 -48 hours. Adding cardizem 60 mg q 8 Hrs. Patient is at risk of cardioembolic events. Discussed this with her son Junaid and recommended anticoagulation. Will start Eliquis 5 mg BID. Will follow up in the office. If persistent atrial fibrillation we will decide whether not to continue with rate control or pursue cardioversion electively as an outpatient. (2) COVID-19 virus infection: Code(s): U07.1 - COVID-19 Status: Acute Assessment and Plan: Patient has been weak for a while although tested COVID negative prior to her squamous cell surgery on 12/24/2019. Was noted to have hypoxia during that hospital stay. Not requiring oxygen at this time and was improving. (3) Hypertension: Code(s): I10 - Essential (primary) hypertension Status: Acute Assessment and Plan: Blood pressure up and down a bit here. Home lisinopril is on hold. (4) JOHNSON (dyspnea on exertion): Code(s): R06.00 - Dyspnea, unspecified Status: Acute Assessment and Plan: Son reports chronic JOHNSON; also noted in the patient's records from [employer]. Former smoker; may have COPD. Does have diastolic dysfunction which may contribute. Follow up with Dr. Obrien on discharge for further evaluation. HPI Data of Consult Date/Time: 01/09/20 11:55 Requesting Physician: Lauri Kuhn MD Primary Care Provider: Shiraz Obrien MD Consult Narrative Narrative: Date of service: 01/09/2020 Marie Moreira is a 79 year old female We are asked to see at the request of Dr. Taylor for our advice and opinion regarding new onset of AFib RVR. The patient was admitted on 01/05/2020 with weakness, Hypoxia and fever and found to be COVID-19 positive, as is her who was also hospitalized. She was improving and plans were made to discharge on January 09. However, last night she developed AFib RVR with heart rates in the 140s to 150s. She was started on a Cardizem drip at 10 milligrams/hour and now her heart rate runs 110-[address] scan was ordered because of worsening chronic back pain which showed no PE or evidence of aortic dissection. TSH was slightly low. Currently she is not requiring supplemental oxygen. No history of heart disease or atrial fibrillation. She does have a history of hypertension. No history of any bleeding problems or strokes. 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 In recovery she had problems with hypoxia and was kept overnight. Chest x-ray showed a possible viral or atypical pneumonia. Home O2 was recommended but she refused saying that she has had low O2 sats in the past and this is known to her PCP. Echo showed a technically difficult study, normal LV function, mild LVH, diastolic dysfunction, this is RVSP 42 mmHg. Was COVID-19 negative Prior to that procedure. History was obtained from the chart, records from [place], the nurse, and the patient's son , Junaid, ([phone]). He has not visited w/ his parents since prior to her [place] hospitalization, but says that since then she just got weaker and was going downhill. Review o
[2020-01-09] MEDS: REMDESIVIR 100 MG/NS 250 ML 100 MG/250 ML BAG 250 MG IVPB (15:57)
[2020-01-09] MEDS: dilTIAZem HCL 60 MG TABLET PO ×2 (18:13→23:16)
[2020-01-09] MEDS: APIXABAN 5 MG TABLET PO (20:14)
[2020-01-10] VITALS (11 sets, daily range): BP systolic 117–143; BP diastolic 57–76; PULSE 53–126; RESP 13–18; TEMP 36.3–36.4; O2SAT 91–96
[2020-01-10 05:10] LABS: Basophils Absolute Auto 0.1 K/mm3 (0.0-0.1); Basophils Percent Auto 0.7 % (0.2-1.2); Hematocrit 47.5 % (37.0-47.0); Immature Granulocyte Absolute 0.11 K/mm3 (0.00-0.031); Immature Granulocyte Percent A 1.5 % (0-0.5); Lymphocytes Absolute Auto 2.17 K/mm3 (0.9-3.2); Lymphocytes Percent Auto 30.2 % (18.3-44.2); Mean Corpuscular HGB Conc 33.7 g/dl (32-36); Mean Corpuscular Hemoglobin 30.2 pg (26-34); Mean Corpuscular Volume 89.8 fl (80-100); Mean Platelet Volume 10.3 fl (7.4-10.4); Monocytes Absolute Auto 0.6 K/mm3 (0.1-0.6); Monocytes Percent Auto 8.1 % (2.6-8.5); Neutrophils Absolute Auto 4.3 K/mm3 (1.3-6.7); Neutrophils Percent Auto 59.5 % (45.5-73.1); Platelet Count Result 282 k/mm3 (150-375); Red Blood Count 5.29 M/mm3 (4.2-5.4); Red Cell Distribution Width 12.2 % (11.5-14.5); White Blood Count 7.2 K/mm3 (4.5-10.0)
[2020-01-10] MEDS: dilTIAZem HCL 60 MG TABLET PO ×3 (05:15→21:31)
[2020-01-10 05:25] LABS: Alanine Aminotransferase 21 U/L (4-35); Albumin Level 3.7 g/dL (3.5-5.1); Alkaline Phosphatase 53 U/L (38-126); Anion Gap 12.5 mmol/L (7-16); Aspartate Amino Transferase 30 U/L (14-36); Bilirubin,Total 0.3 mg/dL (0.2-1.3); Blood Urea Nitrogen 26 mg/dL (7-17); CRP < 0.5 mg/dL (<1.0); Calcium 9.1 mg/dL (8.4-10.2); Carbon Dioxide 26 mmol/L (22-30); Chloride 100 mmol/L (98-107); Estimated CRCL calculation 61 ml/min; Estimated Glomerular Filt Rate > 60; Glucose 124 mg/dL (65-105); Potassium 4.5 mmol/L (3.4-5.0); Sodium 134 mmol/L (137-145)
[2020-01-10] MEDS: ALBUTEROL SULFATE (*SP) AEROSOL 1 PUFF 2 PUFF INHALATION ×4 (07:45→20:05)
[2020-01-10] MEDS: LIDOCAINE 5% PATCH 2 PATCH TRANSDERM (08:47)
[2020-01-10] MEDS: DEXAMETHASONE 2 MG TABLET 6 MG PO (08:50)
[2020-01-10] MEDS: APIXABAN 5 MG TABLET PO ×2 (08:51→20:44)
--- NOTE | 2020-01-10 14:20 | PM.IMPN ---
Progress Note: A&P Assessment and Plan (1) Acute respiratory failure with hypoxia: Code(s): J96.01 - Acute respiratory failure with hypoxia Status: Acute Assessment and Plan: Admit to med-surg. supplemental oxygen as needed to maintain pulse ox >94%. Wean off of oxygen when possible. 01/10/20 14:20 patient is 79-year-old female presented emergency complaint fatigue tired, feverish while in the emergency depart patient was requiring oxygen is is desaturating while on the floor patient is also requiring oxygen to maintain her pulse ox, initially when presented patient had a fever of 101.8, patient COVID test is positive, complains of cough shortness of breath and fever, on 01/05 stared the patient on Remdesivir and dexamethasone per pharmacy protocol, today patient states feeling better not a short of breath denies any fever or chills, will continue to monitor, HR, LFTand kidney function which are stable, today patient was taken off oxygen, patient remains clinically stable and her O2 saturation close to normal on room air, will continue present managed 2 more days will continue to monitor patient oxygen requirement and fever patient is in isolation, patient was seen on January 07 and plan was discharge the patient home his symptoms were improving however 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int of low back pain which is chronic but now is getting worse while in the hospital, is single view x-ray of lumbar spine was done does not show any acute injury another chronic, will continue pain management and will have PT OT evaluate the patient. today patient has completed 5 days of Remdesvire, will continue dexamethasone,patient requiring 2 L of oxygen will continue to monitor (2) Suspected 2019-nCoV infection: Code(s): Z20.828 - Contact with and (suspected) exposure to other viral communicable diseases Status: Acute Assessment and Plan: continue droplet isolation. Supportive care. COVID-19 is positive. Subjective Date/time seen: 01/10/20 14:20 patient is 79-year-old female presented emergency complaint fatigue tired, feverish while in the emergency depart patient was requiring oxygen is is desaturating while on the floor patient is also requiring oxygen to maintain her pulse ox, initially when presented patient had a fever of 101.8, patient COVID test is positive, complains of cough shortness of breath and fever, on 01/05 stared the patient on Remdesivir and dexamethasone per pharmacy protocol, today patient states feeling better not a short of breath denies any fever or chills, will continue to monitor, HR, LFTand kidney function which are stable, today patient was taken off oxygen, patient remains clinically stable and her O2 saturation close to normal on room air, will continue present managed 2 more days will continue to monitor patient oxygen requirement and fever patient is in isolation, patient was seen on January 07 and plan was discharge the patient home his symptoms were improving however 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
[2020-01-10] MEDS: BACLOFEN 10 MG TABLET PO (15:31)
[2020-01-10] MEDS: REMDESIVIR 100 MG/NS 250 ML 100 MG/250 ML BAG 250 MG IVPB (15:35)
[2020-01-11] VITALS (9 sets, daily range): BP systolic 123–161; BP diastolic 64–97; PULSE 60–156; RESP 16–20; TEMP 36.2–36.7; O2SAT 92–99
[2020-01-11] MEDS: hydrALAZINE HCL 20 MG/ML VIAL 10 MG IV PUSH (00:30)
[2020-01-11] MEDS: dilTIAZem HCL 60 MG TABLET PO ×3 (05:21→21:17)
[2020-01-11 06:39] LABS: Basophils Absolute Auto 0.1 K/mm3 (0.0-0.1); Hemoglobin 16.4 g/dL (12.0-15.0); Immature Granulocyte Absolute 0.14 K/mm3 (0.00-0.031); Immature Granulocyte Percent A 1.2 % (0-0.5); Lymphocytes Absolute Auto 4.03 K/mm3 (0.9-3.2); Lymphocytes Percent Auto 35.4 % (18.3-44.2); Mean Corpuscular HGB Conc 33.5 g/dl (32-36); Mean Corpuscular Hemoglobin 30.1 pg (26-34); Mean Corpuscular Volume 90.1 fl (80-100); Mean Platelet Volume 10.3 fl (7.4-10.4); Monocytes Absolute Auto 0.9 K/mm3 (0.1-0.6); Monocytes Percent Auto 7.9 % (2.6-8.5); Neutrophils Absolute Auto 6.2 K/mm3 (1.3-6.7); Neutrophils Percent Auto 54.5 % (45.5-73.1); Platelet Count Result 367 k/mm3 (150-375); Red Blood Count 5.44 M/mm3 (4.2-5.4); White Blood Count 11.4 K/mm3 (4.5-10.0)
[2020-01-11 06:52] LABS: Alanine Aminotransferase 27 U/L (4-35); Albumin Level 3.8 g/dL (3.5-5.1); Alkaline Phosphatase 58 U/L (38-126); Anion Gap 10 mmol/L (8-16); Aspartate Amino Transferase 33 U/L (14-36); Bilirubin,Total 0.5 mg/dL (0.2-1.3); Blood Urea Nitrogen 26 mg/dL (7-17); CRP < 0.5 mg/dL (<1.0); Calcium 9.3 mg/dL (8.4-10.2); Carbon Dioxide 27 mmol/L (22-30); Chloride 98 mmol/L (98-107); Estimated CRCL calculation 54 ml/min; Estimated Glomerular Filt Rate > 60; Glucose 122 mg/dL (65-105); Potassium 4.5 mmol/L (3.4-5.0); Sodium 135 mmol/L (137-145)
[2020-01-11] MEDS: ALBUTEROL SULFATE (*SP) AEROSOL 1 PUFF 2 PUFF INHALATION ×4 (09:12→21:02)
[2020-01-11] MEDS: APIXABAN 5 MG TABLET PO ×2 (09:30→20:34)
[2020-01-11] MEDS: LIDOCAINE 5% PATCH 2 PATCH TRANSDERM (09:30)
[2020-01-11] MEDS: DEXAMETHASONE 2 MG TABLET 6 MG PO (09:30)
[2020-01-11] MEDS: BACLOFEN 10 MG TABLET PO (10:09)
--- NOTE | 2020-01-11 14:12 | PM.IMPN ---
Progress Note: A&P Assessment and Plan (1) Acute respiratory failure with hypoxia: Code(s): J96.01 - Acute respiratory failure with hypoxia Status: Acute Assessment and Plan: Admit to med-surg. supplemental oxygen as needed to maintain pulse ox >94%. Wean off of oxygen when possible. 01/11/20 14:12 patient is 79-year-old female presented emergency complaint fatigue tired, feverish while in the emergency depart patient was requiring oxygen is is desaturating while on the floor patient is also requiring oxygen to maintain her pulse ox, initially when presented patient had a fever of 101.8, patient COVID test is positive, complains of cough shortness of breath and fever, on 01/05 stared the patient on Remdesivir and dexamethasone per pharmacy protocol, today patient states feeling better not a short of breath denies any fever or chills, will continue to monitor, HR, LFTand kidney function which are stable, today patient was taken off oxygen, patient remains clinically stable and her O2 saturation close to normal on room air, will continue present managed 2 more days will continue to monitor patient oxygen requirement and fever patient is in isolation, patient was seen on January 07 and plan was discharge the patient home his symptoms were improving however 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olled, I saw the patient outside her door and spoke to her on telephone, patient is feeling better denies any chest pain shortness of breath palpitation fever or chills, does complaint of low back pain which is chronic but now is getting worse while in the hospital, is single view x-ray of lumbar spine was done does not show any acute injury another chronic, will continue pain management and will have PT OT evaluate the patient. on 01/09 patient had completed 5 days of Remdesvire, will continue dexamethasone, today patient is on RA however gets short winded with exertion and heart rate climbs, patient also states this is just not feeling very well today, will continue to monitor (2) Suspected 2019-nCoV infection: Code(s): Z20.828 - Contact with and (suspected) exposure to other viral communicable diseases Status: Acute Assessment and Plan: continue droplet isolation. Supportive care. COVID-19 is positive. Additional Plan Date of service was 01/06/2020 at 1:15 hrs. Subjective Date/time seen: 01/11/20 14:12 patient is 79-year-old female presented emergency complaint fatigue tired, feverish while in the emergency depart patient was requiring oxygen is is desaturating while on the floor patient is also requiring oxygen to maintain her pulse ox, initially when presented patient had a fever of 101.8, patient COVID test is positive, complains of cough shortness of breath and fever, on 01/05 stared the patient on Remdesivir and dexamethasone per pharmacy protocol, today patient states feeling better not a short of breath denies any fever or chills, will continue to monitor, HR, LFTand kidney function which are stable, today patient was taken off oxygen, patient remains clinically stable and her O2 saturation close to normal on room air, will continue present managed 2 more days will continue to monitor patient oxygen requirement and fever patient is in isolation, patient was seen on January 07 and plan was discharge the patient home his symptoms were improving however 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
--- NOTE | 2020-01-11 15:38 | PM.PNCARD ---
Progress Note: A&P Assessment and Plan (1) Atrial fibrillation with RVR: Code(s): I48.91 - Unspecified atrial fibrillation Status: Acute Assessment and Plan: New onset of atrial fibrillation, likely provoked by acute infection. Heart rate is under fair control with diltiazem 60 mg q.8 hours. Will change to diltiazem 240 mg once daily tomorrow. Anticoagulated with Eliquis, no bleeding problems. Continue rate control anticoagulation strategy for now. (2) COVID-19 virus infection: Code(s): U07.1 - COVID-19 Status: Acute Assessment and Plan: Improving, no longer requiring oxygen at rest. Treatment per hospitalist. Subjective Date/time seen: 01/11/20 15:38 Patient admitted with Hypoxia and fever, found to be COVID positive , but recovering without current need for oxygen. We are following her for her new onset atrial fibrillation with RVR. echo showed EF 60-65%, LVH and mild valve disease. Currently being treated with diltiazem 60 mg q.8 hours and Eliquis. Date of service: 01/11/2020 Patient has been transferred out of the IMU . She says she is feeling a lot better and slept well. With sitting up in a chair earlier. Telemetry shows heart rate 80-115 beats per minute, up to 130s transiently with activity. Review of Systems Constitutional: Constitutional: Reports fatigue ( Improving) ENT: Denies epistaxis Cardiovascular: Cardiovascular: Denies chest pain Respiratory: Respiratory: Reports dyspnea on exertion Gastrointestinal: Gastrointestinal: Denies abdominal pain Musculoskeletal: Musculoskeletal: Reports no additional musculoskeletal complaints Neurologic: Reports system reviewed and no additional complaints, except as documented Exam Narrative: Exam Narrative: Older somewhat frail-appearing lady sitting up in bed in no distress, hard of hearing Const: General: comfortable and no acute distress HENMT: General nose exam: no epistaxis Neck: Neck: supple Resp: Effort & Inspection: normal respiratory effort Cardio: Rhythm: abnormal rhythm irregularly irregular GI: Inspection: non-distended Skin: General skin exam: normal color Neuro: Speech: normal speech Extrem: General: no edema Psych: Affect: normal affect Objective Data Vital Signs Vital Signs: Vital Signs - 24 hr 01/10/20 16:00 01/10/20 17:00 01/10/20 20:00 Temperature 97.4 F L Pulse Rate 126 H 92 109 H Respiratory Rate 18 Blood Pressure 121/70 Pulse Oximetry 95 01/10/20 22:00 01/11/20 00:00 01/11/20 00:45 Temperature 97.4 F L 97.9 F Pulse Rate 96 88 Respiratory Rate 18 20 Blood Pressure 143/57 H 161/97 H 138/67 Pulse Oximetry 96 93 01/11/20 04:00 01/11/20 08:00 01/11/20 09:36 Temperature 97.1 F L 97.5 F L Pulse Rate 87 76 Respiratory Rate 18 18 Blood Pressure 134/88 149/94 H 123/64 Pulse Oximetry 92 96 01/11/20 12:00 Temperature 97.4 F L Pulse Rate 105 H Respiratory Rate 16 Blood Pressure 156/86 H Pulse Oximetry 99 Intake/Output Intake/Output: Intake & Output 01/08/20 01/09/20 01/10/20 01/11/20 23:59 23:59 23:59 23:59 Intake Total 1150 930 647 450 Output Total 400 350 425 Balance 750 580 222 450 Meds/Results Medications: Active Medications Generic Name Dose Route Start Last Admin Trade Name Freq PRN Reason Stop Dose Admin Acetaminophen 650 mg 01/06/20 15:30 01/07/20 11:49 Tylenol Tablet PO 650 mg Q6H PRN Administration Mild Pain (1-3) or Fever Hydrocodone Bitart/Acetaminophen 1 tab 01/07/20 18:09 01/11/20 05:34 [place] 5-325 Mg PO 1 tab Q6H PRN Administration Pain Rated 4-6 Hydrocodone Bitart/Acetaminophen 1 tab 01/09/20 04:11 01/11/20 13:44 [place] 10-325 Mg PO 1 tab Q6H PRN Administration Pain Rated 7
--- NOTE | 2020-01-11 18:46 | PC.NURSE ---
This patient, Marie Moreira, was received from [IMU [id number] ] on 01/10/20 at 1720. Personal belongings list checked and signed. Patient/family oriented to unit policies and routines
[2020-01-12] VITALS (9 sets, daily range): BP systolic 116–155; BP diastolic 75–87; PULSE 53–121; RESP 18–20; TEMP 36.3–36.8; O2SAT 92–98
[2020-01-12] MEDS: dilTIAZem HCL 60 MG TABLET PO (05:26)
[2020-01-12 06:34] LABS: Basophils Absolute Auto 0.1 K/mm3 (0.0-0.1); Basophils Percent Auto 0.6 % (0.2-1.2); Hemoglobin 15.3 g/dL (12.0-15.0); Immature Granulocyte Absolute 0.13 K/mm3 (0.00-0.031); Immature Granulocyte Percent A 1.1 % (0-0.5); Lymphocytes Absolute Auto 2.81 K/mm3 (0.9-3.2); Lymphocytes Percent Auto 23.9 % (18.3-44.2); Mean Corpuscular Hemoglobin 30.5 pg (26-34); Mean Corpuscular Volume 89.6 fl (80-100); Mean Platelet Volume 10.5 fl (7.4-10.4); Monocytes Absolute Auto 1.1 K/mm3 (0.1-0.6); Monocytes Percent Auto 9.3 % (2.6-8.5); Neutrophils Absolute Auto 7.7 K/mm3 (1.3-6.7); Neutrophils Percent Auto 65.1 % (45.5-73.1); Platelet Count Result 362 k/mm3 (150-375); Red Blood Count 5.02 M/mm3 (4.2-5.4); Red Cell Distribution Width 12.2 % (11.5-14.5); White Blood Count 11.8 K/mm3 (4.5-10.0)
[2020-01-12 06:52] LABS: Alanine Aminotransferase 35 U/L (4-35); Albumin Level 3.7 g/dL (3.5-5.1); Alkaline Phosphatase 54 U/L (38-126); Anion Gap 8 mmol/L (8-16); Aspartate Amino Transferase 40 U/L (14-36); Bilirubin,Total 0.5 mg/dL (0.2-1.3); Blood Urea Nitrogen 27 mg/dL (7-17); CRP < 0.5 mg/dL (<1.0); Calcium 9.2 mg/dL (8.4-10.2); Carbon Dioxide 27 mmol/L (22-30); Chloride 97 mmol/L (98-107); Estimated CRCL calculation 54 ml/min; Estimated Glomerular Filt Rate > 60; Glucose 138 mg/dL (65-105); Potassium 4.2 mmol/L (3.4-5.0); Sodium 132 mmol/L (137-145)
[2020-01-12] MEDS: BACLOFEN 10 MG TABLET PO ×2 (07:03→16:32)
[2020-01-12] MEDS: ALBUTEROL SULFATE (*SP) AEROSOL 1 PUFF 2 PUFF INHALATION ×4 (08:12→21:01)
[2020-01-12] MEDS: DEXAMETHASONE 2 MG TABLET 6 MG PO (10:02)
[2020-01-12] MEDS: APIXABAN 5 MG TABLET PO ×2 (10:02→20:48)
[2020-01-12] MEDS: LIDOCAINE 5% PATCH 2 PATCH TRANSDERM (10:02)
--- NOTE | 2020-01-12 13:50 | PM.PNCARD ---
Progress Note: A&P Assessment and Plan (1) Atrial fibrillation with RVR: Code(s): I48.91 - Unspecified atrial fibrillation Status: Acute Assessment and Plan: New onset of atrial fibrillation, likely provoked by acute infection. Heart rate variable, quite high with activity, changed to diltiazem 240 mg once daily starting earlier today. Will add some p.o. metoprolol as well. Anticoagulated with Eliquis, no bleeding problems. Continue rate control anticoagulation strategy for now. (2) COVID-19 virus infection: Code(s): U07.1 - COVID-19 Status: Acute Assessment and Plan: Improving, no longer requiring oxygen at rest. Treatment per hospitalist. Subjective Date/time seen: Patient admitted with Hypoxia and fever, found to be COVID positive , but recovering without current need for oxygen. We are following her for her new onset atrial fibrillation with RVR. echo showed EF 60-65%, LVH and mild valve disease. Currently being treated with diltiazem 60 mg q.8 hours and Eliquis. Date of visit: 01/11/2020 Patient has been transferred out of the IMU . She says she is feeling a lot better and slept well. With sitting up in a chair earlier. Telemetry shows heart rate 80-115 beats per minute, up to 130s transiently with activity. Change Cardizem to once daily Cardizem 240 mg daily. 01/12/20 13:50 Date of service: 01/12/2020 The patient's heart rate went up to the 130-150 range with physical therapy, and has been staying up in this range even with rest. Otherwise is doing well, no shortness of breath, no need for oxygen. Might be discharged tomorrow. Review of Systems Constitutional: Constitutional: Reports weakness ( complained of a lot of weakness in the last several days.) ENT: Denies epistaxis Cardiovascular: Cardiovascular: Denies chest pain, Denies leg edema, Denies palpitations, Reports dyspnea and Reports dyspnea on exertion Gastrointestinal: Gastrointestinal: Denies abdominal pain Genitourinary: Genitourinary: Denies hematuria Integumentary/Breasts: Skin/Breast: Denies rash Neurologic: Denies behavioral changes, Denies vertigo ( No dizziness) and Reports weakness ( complained of a lot of weakness in the last several days.) Endocrine: Endocrine: Reports fatigue ( Improving) and Denies palpitations Exam Narrative: Exam Narrative: Older somewhat frail-appearing lady sitting up in bed in no distress, hard of hearing Const: General: comfortable and no acute distress; No confusion Orientation/consciousness: No confusion Other: Elderly female in bed, no distress HENMT: General nose exam: no epistaxis Neck: Neck: supple Resp: Effort & Inspection: normal respiratory effort Cardio: Rate: tachycardic Rhythm: abnormal rhythm irregularly irregular GI: Inspection: non-distended Skin: General skin exam: normal color and no rashes or lesions noted Neuro: General: No confusion Speech: normal speech Motor exam (neuro): Normal motor muscle tone present throughout ( per nurse, able to get out of bed and sit on bedside commode.) Extrem: General: no edema and no pedal edema Psych: Mental Status: mental status grossly normal ( Per nurse.) Affect: normal affect Objective Data Vital Signs Vital Signs: Vital Signs - 24 hr 01/11/20 16:00 01/11/20 17:00 01/11/20 20:00 Temperature 97.9 F 98.0 F Pulse Rate 96 89 156 H Respiratory Rate 18 18 Blood Pressure 136/78 124/73 Pulse Oximetry 93 94 01/12/20 00:00 01/12/20 04:00 01/12/20 08:00 Temperature 97.4 F L 97.3 F L 97.5 F L Pulse Rate 110 H 98 81 Respiratory Rate 18 18 20 Blood Pressure 155/87 H 154/75 H 127/75 Pulse Oximetry 98 93 93 Intake/Output Intake/Output: Intake & Output 01/09/20 01/10/20 01/11/20 01/12/20 23:59 23:59 23:59 23:59 Intake Total 236 134 3667 350 Output Total 350 425 600 400 Balance 580 222 590 -50
[2020-01-12] MEDS: METOPROLOL TARTRATE 25 MG TABLET PO ×2 (14:40→20:48)
--- NOTE | 2020-01-12 15:23 | PM.IMPN ---
Progress Note: A&P Assessment and Plan (1) Acute respiratory failure with hypoxia: Code(s): J96.01 - Acute respiratory failure with hypoxia Status: Acute Assessment and Plan: Admit to med-surg. supplemental oxygen as needed to maintain pulse ox >94%. Wean off of oxygen when possible. 01/12/20 15:23 patient is 79-year-old female presented emergency complaint fatigue tired, feverish while in the emergency depart patient was requiring oxygen is is desaturating while on the floor patient is also requiring oxygen to maintain her pulse ox, initially when presented patient had a fever of 101.8, patient COVID test is positive, complains of cough shortness of breath and fever, on 01/05 stared the patient on Remdesivir and dexamethasone per pharmacy protocol, today patient states feeling better not a short of breath denies any fever or chills, will continue to monitor, HR, LFTand kidney function which are stable, today patient was taken off oxygen, patient remains clinically stable and her O2 saturation close to normal on room air, will continue present managed 2 more days will continue to monitor patient oxygen requirement and fever patient is in isolation, patient was seen on January 07 and plan was discharge the patient home his symptoms were improving however 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 was seen by Piano Mover as patient heart rate was trending diltiazem drip postop and patient was started on diltiazem p.o., today patient remains clinically stable, her rate is controlled, I saw the patient outside her door and spoke to her on telephone, patient is feeling better denies any chest pain shortness of breath palpitation fever or chills, does complaint of low back pain which is chronic but now is getting worse while in the hospital, is single view x-ray of lumbar spine was done does not show any acute injury another chronic, will continue pain management and will have PT OT evaluate the patient. on 01/09 patient had completed 5 days of Remdesvire, will continue dexamethasone, today patient is on RA however gets short winded with exertion and heart rate climbs and variable, today patient was seen by cardiologst increased diltiazem to 240mg daily and added metoprolol to keep heart rate under control, anticoagulated with Eliquis, patient white counts are elevated most likely secondary to dexamethasone, overall patient is feeling better and stable may discharge patient rehab tomorrow. (2) Suspected 2019-nCoV infection: Code(s): Z20.828 - Contact with and (suspected) exposure to other viral communicable diseases Status: Acute Assessment and Plan: continue droplet isolation. Supportive care. COVID-19 is positive. Subjective Date/time seen: 01/12/20 15:23 patient is 79-year-old female presented emergency complaint fatigue tired, feverish while in the emergency depart patient was requiring oxygen is is desaturating while on the floor patient is also requiring oxygen to maintain her pulse ox, initially when presented patient had a fever of 101.8, patient COVID test is positive, complains of cough shortness of breath and fever, on 01/05 stared the patient on Remdesivir and dexamethasone per pharmacy protocol, today patient states feeling better not a short of breath denies any fever or chills, will continue to monitor, HR, LFTand kidney function which are stable, today patient was taken off oxygen, patient remains clinically stable and her O2 saturation close to normal on room air, will continue present managed 2 more days will continue to monitor patient oxygen requirement and fever patient is in isolation, patient was seen on January 07 and plan was discharge the patient home his symptoms were improving however 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
[2020-01-13] VITALS (8 sets, daily range): BP systolic 123–150; BP diastolic 50–94; PULSE 63–105; RESP 16–18; TEMP 36.4–36.8; O2SAT 91–95
[2020-01-13] MEDS: METOPROLOL TARTRATE 25 MG TABLET PO ×2 (01:23→08:42)
[2020-01-13] MEDS: BACLOFEN 10 MG TABLET PO (01:23)
[2020-01-13 06:45] LABS: Basophils Absolute Auto 0.1 K/mm3 (0.0-0.1); Basophils Percent Auto 0.7 % (0.2-1.2); Hematocrit 43.6 % (37.0-47.0); Hemoglobin 14.7 g/dL (12.0-15.0); Immature Granulocyte Absolute 0.19 K/mm3 (0.00-0.031); Immature Granulocyte Percent A 1.4 % (0-0.5); Lymphocytes Absolute Auto 3.84 K/mm3 (0.9-3.2); Lymphocytes Percent Auto 28.4 % (18.3-44.2); Mean Corpuscular HGB Conc 33.7 g/dl (32-36); Mean Corpuscular Hemoglobin 30.4 pg (26-34); Mean Corpuscular Volume 90.1 fl (80-100); Mean Platelet Volume 10.3 fl (7.4-10.4); Monocytes Percent Auto 7.3 % (2.6-8.5); Neutrophils Absolute Auto 8.4 K/mm3 (1.3-6.7); Neutrophils Percent Auto 62.2 % (45.5-73.1); Platelet Count Result 399 k/mm3 (150-375); Red Blood Count 4.84 M/mm3 (4.2-5.4); Red Cell Distribution Width 12.1 % (11.5-14.5); White Blood Count 13.5 K/mm3 (4.5-10.0)
[2020-01-13 07:00] LABS: Alanine Aminotransferase 38 U/L (4-35); Albumin Level 3.5 g/dL (3.5-5.1); Alkaline Phosphatase 49 U/L (38-126); Anion Gap 8 mmol/L (8-16); Aspartate Amino Transferase 30 U/L (14-36); Bilirubin,Total 0.5 mg/dL (0.2-1.3); Blood Urea Nitrogen 25 mg/dL (7-17); CRP < 0.5 mg/dL (<1.0); Calcium 9.1 mg/dL (8.4-10.2); Carbon Dioxide 27 mmol/L (22-30); Chloride 99 mmol/L (98-107); Estimated CRCL calculation 63 ml/min; Estimated Glomerular Filt Rate > 60; Glucose 136 mg/dL (65-105); Sodium 134 mmol/L (137-145)
[2020-01-13] MEDS: ALBUTEROL SULFATE (*SP) AEROSOL 1 PUFF 2 PUFF INHALATION ×3 (08:37→15:34)
[2020-01-13] MEDS: DEXAMETHASONE 2 MG TABLET 6 MG PO (08:42)
[2020-01-13] MEDS: APIXABAN 5 MG TABLET PO (08:43)
[2020-01-13] MEDS: LIDOCAINE 5% PATCH 2 PATCH TRANSDERM (08:43)
--- NOTE | 2020-01-13 10:36 | PM.PNCARD ---
Progress Note: A&P Assessment and Plan (1) Atrial fibrillation with RVR: Code(s): I48.91 - Unspecified atrial fibrillation Status: Acute Assessment and Plan: New onset of atrial fibrillation, likely provoked by acute infection. Heart rate variable, quite high with activity, changed to diltiazem 240 mg once daily starting earlier today. heart rate is reasonably controlled at this point. Continue diltiazem and metoprolol. will change her metoprolol to 50 mg p.o. q.12 Anticoagulated with Eliquis, no bleeding problems. Continue rate control anticoagulation strategy for now. (2) COVID-19 virus infection: Code(s): U07.1 - COVID-19 Status: Acute Assessment and Plan: Improving, no longer requiring oxygen at rest. Treatment per hospitalist. Subjective Date/time seen: 01/13/20 10:36 Interval history: chief complaint: Atrial fibrillation, COVID positive, shortness breath Date of service 01/13/2020: Patient denies any chest pain or shortness of breath. She does seem a little confused but conversant Review of Systems Constitutional: Constitutional: Reports fatigue ( Improving) and Reports weakness ( complained of a lot of weakness in the last several days.) Eyes: Eyes: Reports no additional eye complaints ENT: Denies vertigo ( No dizziness) and Denies epistaxis Cardiovascular: Cardiovascular: Denies chest pain, Denies leg edema, Denies palpitations, Reports dyspnea and Reports dyspnea on exertion Respiratory: Respiratory: Reports dyspnea and Reports dyspnea on exertion Gastrointestinal: Gastrointestinal: Denies abdominal pain Genitourinary: Genitourinary: Denies hematuria Musculoskeletal: Musculoskeletal: Reports no additional musculoskeletal complaints and Reports back pain ( Chronic back pain) Integumentary/Breasts: Skin/Breast: Denies rash Neurologic: Denies behavioral changes, Denies vertigo ( No dizziness) and Reports weakness ( complained of a lot of weakness in the last several days.) Psychiatric: Psychiatric: Denies behavioral changes Endocrine: Endocrine: Reports fatigue ( Improving) and Denies palpitations Exam Narrative: Exam Narrative: Older somewhat frail-appearing lady sitting up in bed in no distress, hard of hearing Const: General: comfortable and no acute distress Other: Elderly female in bed, no distress HENMT: General nose exam: no epistaxis Eyes: General: appearance normal, both eyes and all related structures Resp: Effort & Inspection: normal respiratory effort Cardio: Rate: tachycardic Rhythm: abnormal rhythm irregularly irregular Skin: General skin exam: normal color Neuro: Speech: normal speech Psych: Affect: normal affect Objective Data Vital Signs Vital Signs: Vital Signs - 24 hr 01/12/20 12:00 01/12/20 14:40 01/12/20 16:00 Temperature 36.5 C 36.8 C Pulse Rate 98 121 H 79 Respiratory Rate 20 19 Blood Pressure 147/75 H 116/76 Pulse Oximetry 93 93 01/12/20 20:00 01/12/20 20:48 01/12/20 21:01 Temperature 36.7 C Pulse Rate 86 91 Respiratory Rate 18 Blood Pressure 126/85 Pulse Oximetry 96 92 01/13/20 00:00 01/13/20 01:23 01/13/20 04:00 Temperature 36.6 C 36.8 C Pulse Rate 69 84 63 Respiratory Rate 18 18 Blood Pressure 123/87 132/88 Pulse Oximetry 93 95 01/13/20 08:00 01/13/20 08:16 01/13/20 08:42 Temperature 36.7 C Pulse Rate 105 H 63 Respiratory Rate 16 Blood Pressure 150/80 H Pulse Oximetry 95 94 Intake/Output Intake/Output: Intake & Output 01/10/20 01/11/20 01/12/20 01/13/20 23:59 23:59 23:59 23:59 Intake Total 647 1190 995 350 Output Total 589 883 5636 400 Balance 222 590 -5 -50 Meds/Results Medications: Active Medications Generic Name Dose Route Start Last Admin Trade Name Freq PRN Reason Stop Dose Admin Acetaminophen 650 mg 01/06/20 15:30 01/07/20 11:49 Tylenol Tablet PO 6
--- NOTE | 2020-01-13 12:50 | PCNWS ---
Weekly nutritional screen. Patient is currently on a regular diet, reported intake 0-15 % of meals. Ensure Compact BID has been added for additional 220 kcals and 9 gms protein. Plans for possible discharge today.
--- NOTE | 2020-01-13 15:24 | PM.DS ---
DS: Admitting Diagnosis Admitting Diagnosis Admitting Diagnosis: Acute respiratory failure with hypoxia DS: Discharge Diagnosis Discharge Diagnosis (1) Acute respiratory failure with hypoxia: Code(s): J96.01 - Acute respiratory failure with hypoxia Status: Acute Assessment and Plan: Admit to med-surg. supplemental oxygen as needed to maintain pulse ox >94%. Wean off of oxygen when possible. 01/12/20 15:23 patient is 79-year-old female presented emergency complaint fatigue tired, feverish while in the emergency depart patient was requiring oxygen is is desaturating while on the floor patient is also requiring oxygen to maintain her pulse ox, initially when presented patient had a fever of 101.8, patient COVID test is positive, complains of cough shortness of breath and fever, on 01/05 stared the patient on Remdesivir and dexamethasone per pharmacy protocol, today patient states feeling better not a short of breath denies any fever or chills, will continue to monitor, HR, LFTand kidney function which are stable, today patient was taken off oxygen, patient remains clinically stable and her O2 saturation close to normal on room air, will continue present managed 2 more days will continue to monitor patient oxygen requirement and fever patient is in isolation, patient was seen on January 07 and plan was discharge the patient home his symptoms were improving however 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 transferred to ICU on diltiazem drip patient was seen by Paralegal Specialist as patient heart rate was trending diltiazem drip postop and patient was started on diltiazem p.o., today patient remains clinically stable, her rate is controlled, I saw the patient outside her door and spoke to her on telephone, patient is feeling better denies any chest pain shortness of breath palpitation fever or chills, does complaint of low back pain which is chronic but now is getting worse while in the hospital, is single view x-ray of lumbar spine was done does not show any acute injury another chronic, will continue pain management and will have PT OT evaluate the patient. on 01/09 patient had completed 5 days of Remdesvire, will continue dexamethasone, today patient is on RA however gets short winded with exertion and heart rate climbs and variable, today patient was seen by cardiologst increased diltiazem to 240mg daily and added metoprolol to keep heart rate under control, anticoagulated with Eliquis, patient white counts are elevated most likely secondary to dexamethasone, overall patient is feeling better and stable may discharge patient rehab tomorrow. (2) Suspected 2019-nCoV infection: Code(s): Z20.828 - Contact with and (suspected) exposure to other viral communicable diseases Status: Acute Assessment and Plan: continue droplet isolation. Supportive care. COVID-19 is positive. DS: Summary Hospital Course Reason for hospitalization: Chief complaint: COVID-19 suspected, acute respiratory failure with Narrative: This is an 79 year old female who is previously known to be healthy who presented to the hospital with her angelo complaining of generalized weakness and decreased appetite for the past 5 days. She denies any shortness of breath, cough, fevers, chills, chest pain, sore throat, abdominal pain, dysuria, hematuria, rectal bleeding or LE swelling. The patient was found to be desaturating down to the 80s in the ER tonight and required supplemental oxyge. The patient was tested for COVID-19 and we were asked to admit the patient to the hospital for further care. She denies any other symptoms. Hospital Course: 01/12/20 15:23 patient is 79-year-old female presented emergency complaint fatigue tired, feverish while in the emergency depart patient was requiring oxygen is is desaturating while on the floor patient is also requiring oxygen to maintain her pulse ox,
== END 2020-01-13 18:59 | disposition swing bed (61) | DRG 177 ==
LOC: ANHED 23:42 → ANH3MEDSUR 01-06 00:01 → ANHICU 01-16 10:55
PROVIDERS: Admitting Provider Family Medicine; Emergency Provider Emergency Medicine; PCP Family Medicine; Visit Provider Family Medicine
DX: U07.1 COVID-19 (principal); J96.01 Acute respiratory failure with hypoxia; I48.91 Unspecified atrial fibrillation; I10 Essential (primary) hypertension; Z85.89 Personal history of malignant neoplasm of other organs and systems; Z87.891 Personal history of nicotine dependence
CPT/HCPCS: 36415; 71045; 71275; 72020; 80053; 83605; 83735; 84439; 84443; 84480; 84484; 85025; 85610; 85730; 86140; 87040; 87635; 93005; 93306; 94640; 96361; 96374; 97110; 97116; 97161; 97165; 97530; 97535; 99285; A9270; C9803; G0378; J0131; J0360; J1650; J1885; J7030; J8540; Q9967; U0003

== ENCOUNTER 2020-01-13 19:47 | Inpatient (IN) | payer MEDICARE, OTHER, SELFPAY ==
--- NOTE | ~2020-01-13 | XR_ITS ---
EXAMINATION: XR chest 2V DATE: 01/18/2020 10:44 INDICATION: Leukocytosis. TECHNIQUE: Frontal and lateral views of the chest were obtained. COMPARISON: Chest single view 01/13/2020, chest CT 01/09/2020 FINDINGS: There is mild scarring at right lung apex. No pleural effusion or pneumothorax. The heart s ize is normal. Calcified left hilar lymph nodes are consistent with old granulomatous disease. There are chronic compression fractures in mid thoracic spine. IMPRESSION: 1. Mild scarring at right lung apex. Reviewed, dictated and finalized at location A.
[2020-01-13 20:14] VITALS: BP 136/74; PULSE 95; RESP 16; TEMP 36.2; O2SAT 96
--- NOTE | 2020-01-13 20:22 | PC.NURSE ---
79 year old female admitted to swing bed from [facility]. Patient presented on 01/06/2020 at [place] [facility] for c/o weakness and decreased appetite for past 3 days. Patient was COVID teested with positive result. Patient is alert and able to answer most questions. Patient has a diagnosis of dementia. Patient c/o severe back pain. She has a diagnosis of chronic back pain for which she is being treated. Patient positioned for comfort with call light explained and SR up x2. Patient pleasant and answers questions readily. Nurse called who is in ICU at [facility] and received permission to give information to sonHerson JR who is there POA. Per Herson ardon, may allow sonJunaid to speak with patient. Password given is Fancy. Patient placed on isolation.
--- NOTE | 2020-01-13 20:45 | PM.IMHP ---
H&P: HPI History of Present Illness Date/Time: 01/13/20 20:45 Chief complaint: Covid Narrative: Marie Moreira is a 79 year old female presents from [facility]. Patient was admitted to [facility] with some respiratory distress, generalized weakness for 6 days prior to admission and on the day of her presentation she had O2 saturations of 88% on room air. Patient had a temperature of 101.8? and tested positive For COVID. Patient was a 1 pack per day smoker times 20 years. patient was admitted on January 05 with respiratory distress, patient was admitted and started on Rendesivir x5 days, and dexamethasone. Patient has a history of hypertension, COPD, diastolic heart disease preserved ejection fraction. During her hospital course on January 07 the patient was improving but on January 08 the patient developed atrial fibrillation with a rapid ventricular response in which Cardiology was consulted. Patient with atrial fibrillation and rapid ventricular response started IV Cardizem and subsequently given p.o. diltiazem 240 mg. Cardiology was consulted and patient has a normal left ventricular function with diastolic dysfunction. Cardiology started patient on Eliquis, and the patient was continued on diltiazem 240 mg, Heart rate continued to be tachycardic and metoprolol was started to control heart rate along with the diltiazem. Patient completed her course of Rendesivir, currently was stable for discharge. Patient was discharged for rehab at [facility]. Patient also has a history of chronic low back pain and currently having a back pain while sitting in bed. Review of Systems Review of Systems: All systems reviewed & are unremarkable except as noted in HPI and below PMFSH Past Medical History Medical History Atrial fibrillation with RVR Hypertension Lipoma removed from chest Patient denies significant medical history Squamous cell carcinoma of vulva Excised 12/24/2019 at [facility], Dr. Josh Del Cid. Surgical History Surgical History History of appendectomy Family History Family History Other No pertinent family history Unknown family medical history Social History Social History Social History: Patient and her live next door to their younger son Junaid ) who is on disability but helps them out. The older son was in MVA and is now in a wheelchair. Smoking packs per day: 1 Smoking cigarettes per day: 20.0 Years smoked: 20 Smoking pack-years: 20.00 Smoking status: Former smoker Tobacco type: cigarettes Second hand tobacco smoke exposure: No Alcohol intake: never Substance use: never Gender identity (if verbalized by the patient): Female Spiritual care concerns: No Meds Home Medications and Allergies Home Medications Medication Instructions Recorded Confirmed Type gabapentin 200 mg PO TID 01/06/20 01/13/20 History lisinopril 20 mg PO DAILY 01/06/20 01/13/20 History hydrocodone-acetaminophen [Jber] 1 tablet PO Q6H PRN 01/07/20 01/13/20 History apixaban [Eliquis] 5 mg PO Q12HR #60 tablet 01/13/20 01/13/20 Rx baclofen 10 mg PO Q8HR PRN #30 tablet 01/13/20 01/13/20 Rx dexamethasone 6 mg PO DAILY@0800 #2 tablet 01/13/20 01/13/20 Rx diltiazem HCl 240 mg PO QAM #30 cap 01/13/20 01/13/20 Rx hydralazine 10 mg PO Q8H PRN #30 tablet 01/13/20 01/13/20 Rx lidocaine [Lidoderm] 2 patch TRANSDERMAL DAILY #10 ea 01/13/20 01/13/20 Rx metoprolol tartrate 50 mg PO Q12HR #60 tablet 01/13/20 01/13/20 Rx Allergies Allergy/AdvReac Type Severity Reaction Status Date / Time No Known Allergies Allergy Verified 01/05/20 23:10 Exam Const: General: comfortable and no acute distress Eyes: General: appearance normal, both eyes and all related st
[2020-01-13] MEDS: APIXABAN 2.5 MG TABLET 5 MG PO (21:12)
[2020-01-13 21:13] VITALS: PULSE 96
[2020-01-13] MEDS: METOPROLOL TARTRATE 50 MG TAB PO (21:13)
[2020-01-13] MEDS: BACLOFEN 10 MG TABLET PO (21:14)
[2020-01-13 22:07] LABS: Glucose Point of Care 171 (65-105)
--- NOTE | 2020-01-13 22:25 | PC.NURSE ---
Resting in bed. Call light and belongings with reach. Patient used call light to ask for assistance to bathroom. Patient attempting to climb out of bed before nurse was able to gown up and go into room. Nurse yelled into door to tell patient to wait for assist, patient acknowledged what nurse said.but patient continued to try to get up. Nurse able to get into room and assist patient to bathroom. Patient carried the walker in front of herself as she amb to bathroom. Depends damp but patient urinated in toilet. Assisted back to bed and positioned for comfort.
[2020-01-14] VITALS: BP 138/67; PULSE 78; RESP 18; TEMP 36.7; O2SAT 96
--- NOTE | 2020-01-14 00:55 | PC.NURSE ---
9433 Assessment completed. [place] 1 tablet given po for back pain. Patient wants to sit on side of bed for awhile. Patient states, It helps my back some. Patient declines offer to go to bathroom at this time. Reorientated to place and time.
--- NOTE | 2020-01-14 01:42 | PC.NURSE ---
1345 Lying back in bed dozing off and on. No concerns or wants at this time. Pain level 3.
--- NOTE | 2020-01-14 02:35 | PC.NURSE ---
1435 Continues to be in bed dozing off and on. Safety precautions remain.
[2020-01-14 05:32] VITALS: BMI 20.1
--- NOTE | 2020-01-14 06:20 | PC.NURSE ---
0610 Continues to sleep on left side. Left undisturbed at present.
[2020-01-14 07:23] VITALS: BP 139/85; PULSE 82; RESP 18; TEMP 36.3; O2SAT 96
--- NOTE | 2020-01-14 07:37 | WPDREHABHP ---
H&P: HPI History of Present Illness Date/Time: 01/14/20 07:37 <Yari Mart, PERSONAL COMPUTER NETWORK ENGINEER - Last Filed: 01/14/20 14:33> Chief complaint: Covid <Yari Mart, PERSONAL COMPUTER NETWORK ENGINEER - Last Filed: 01/14/20 14:33> Narrative: Marie Moreira is a 79 year old female Admitted to [facility] rehab in patient status here at [facility] to recover from positive COVID viral pneumonia, confusion, further monitor her A.fib, dyspnea, and generalized weakness. She transferred here yesterday early evening from [facility]. Patient was admitted on January 05 to [facility] with acute respiratory distress with O2 saturations of 88% on room air. Patient had a temperature of 101.8? and tested positive for COVID. She completed a course of Rendesivir x5 days, and remains on oral dexamethasone at this time. During her hospital course on January 07 the patient was improving but on January 08 the patient developed atrial fibrillation with a rapid ventricular response in which Cardiology was consulted. She was started on IV Cardizem and converted to p.o. diltiazem 240 mg. Her January 09, 2020 Echo showed: Left ventricular chamber dimension is normal. Left ventricular systolic function is normal, estimated at 60-65%.No pulmonary hypertension, estimated pulmonary arterial systolic pressure is 29 mmHg. mild aortic valve regurgitation. no mitral valve regurgitation.mild tricuspid valve regurgitation.mild pulmonic regurgitation.left ventricular diastolic function is abnormal. no pericardial effusion. Cardiology started patient on Eliquis and continued on diltiazem 240 mg. Heart rate continued to be tachycardic so metoprolol was started to control heart rate along with the diltiazem. Patient completed her course of Rendesivir and was stable for discharge to [facility]. Patient has a history of hypertension, COPD, diastolic heart disease preserved ejection fraction. Patient also has a history of chronic low back pain and currently having back pain while sitting in bed. Mraie was a 1 pack per day smoker times 20 years, quit in her 70s. Marie is doing well today. No coughing no chest or sinus congestion, no runny nose or sneezing. She is not short of breath or dyspneic with conversation or with transfers from bed to chair or with eating her meals. Her biggest complaint is regarding her back. She stated that she has had chronic left-sided mid to low back pain for more than a year. She denies having any trauma or motor vehicle accident or fall that led up to this. To control her pain, we will increase her Neurontin dosing from 200 mg t.i.d. up to 300 mg t.i.d., use scheduled Tylenol doses, scheduled lidocaine patches, p.r.n. Flexeril low-dose 5 mg, p.r.n. [place]. Last night she received a 10 mg dose of Baclofen for her back pain. She remained restless, painful, and did not sleep well. Marie was able to transfer well with assist x1 today. She feels best when sitting in the recliner with her feet elevated. Her lungs sound clear but slightly diminished, her bowel sounds are normal and soft abdomen. She states she is not having any nausea or vomiting, she denies any constipation or diarrhea, and states that she is having a bowel movement every day or every other day. This morning she continued to have 10/10 pain, so she received the Tylenol, the lidocaine patches, her Neurontin, and her [place] to finally get to an acceptable level of comfort. She has not yet received the Flexeril. She denies having or using any back brace at home. Follow up with [facility], [place] ([facility]ally [facility]) office at [facility] [address] with Sury Hammond NP on February 24, 2020 at 11:00 a.m. Please arrive by 10:45 a.m. for your appointment. Bring photo ID, insurance card(s) and current medication list. <Yari Mart NP - Last Filed: 01/14/20 14:33> Review of Systems Review of Systems All systems reviewed & are unremarkabl
[2020-01-14] MEDS: DEXAMETHASONE 4 MG TABLET 6 MG PO (08:07)
--- NOTE | 2020-01-14 08:11 | PC.NURSE ---
purnima given for back pain, up in chair and eating breakfast, isolation in place
[2020-01-14] MEDS: ACETAMINOPHEN 500 MG TABLET 1000 MG PO ×3 (08:40→16:39)
[2020-01-14 08:41] VITALS: PULSE 82
[2020-01-14] MEDS: METOPROLOL TARTRATE 50 MG TAB PO ×2 (08:41→20:25)
[2020-01-14] MEDS: GABAPENTIN 100 MG CAPSULE 300 MG PO ×3 (08:41→16:39)
[2020-01-14] MEDS: LIDOCAINE 5% PATCH 1 PATCH TRANSDERM (08:42)
[2020-01-14] MEDS: lisinopriL 20 MG TABLET PO (08:42)
--- NOTE | 2020-01-14 08:58 | PC.NURSE ---
Up in chair, legs elevated for comfort, pain unchanged in her back at this time, lidocaine patches applied to her back where pain located, will re assess pain at 0930 to see if further pain medication may be needed, am meds administered to include gabapentin 300mg
[2020-01-14 09:06] LABS: Glucose Point of Care 120 (65-105)
--- NOTE | 2020-01-14 09:19 | PC.NURSE ---
OT in to do initial evaluation for patients swing bed status
--- NOTE | 2020-01-14 09:56 | PC.NURSE ---
Denies need for further pain medication at this time, states can't give it a number but it is better, remains in chair, offered to assist to bathroom to void, denies need at this time
--- NOTE | 2020-01-14 11:00 | PC.NURSE ---
PT dept in to evaluate patient
--- NOTE | 2020-01-14 11:20 | PC.NURSE ---
SBA up to void for urine sample, missed hat, voided in to toilet, will try again with next void, gait steady
--- NOTE | 2020-01-14 11:58 | PC.NURSE ---
Lunch tray set up for patient, denies needs, re oriented to hospital setting and how to use call light
--- NOTE | 2020-01-14 12:28 | ECG_ITS ---
Measurements Intervals [place] Rate: 72 P: MO: 0 QRS: -70 QRSD: 89 T: 0 QT: 384 QTc: 422 Interpretive Statements ATRIAL FIBRILLATION LEFT AXIS DEVIATION CANNOT RULE OUT SEPTAL INFARCT, AGE INDETERMINATE BASELINE ARTIFACT- II, III, AVR, AVF ABNORMAL ECG Electronically Signed On 01-14-2020 13:41:14 CDT by Lucien Gaffney D.O.
[2020-01-14 15:12] VITALS: BP 91/60; PULSE 68; RESP 18; TEMP 36.3; O2SAT 93
--- NOTE | 2020-01-14 15:34 | PC.NURSE ---
Responded to call light, assisted to change channel, denies need to void at this time
--- NOTE | 2020-01-14 16:03 | ECG_ITS ---
Measurements Intervals [place] Rate: 55 P: AK: 0 QRS: -67 QRSD: 107 T: -34 QT: 390 QTc: 374 Interpretive Statements ATRIAL FIBRILLATION WITH SLOW VENTRICULAR RESPONSE LEFT AXIS DEVIATION CANNOT RULE OUT SEPTAL INFARCT, AGE INDETERMINATE BASELINE ARTIFACT- I, II, III, AVR, AVL, AVF, V1-V6 ABNORMAL ECG Electronically Signed On 01-14-2020 19:36:35 CDT by Lucien Gaffney D.O.
--- NOTE | 2020-01-14 18:01 | PC.NURSE ---
In chair, denies need to void, ate fairly well, states doesn't wish to go to bed at this time, legs elevated, isolation observed
[2020-01-14] MEDS: BACLOFEN 10 MG TABLET PO (20:26)
[2020-01-14] MEDS: APIXABAN 2.5 MG TABLET 5 MG PO (21:36)
[2020-01-15 00:24] VITALS: BP 105/67; PULSE 60; RESP 18; TEMP 36.4; O2SAT 96
[2020-01-15 06:03] LABS: Basophils Absolute Auto 0.09 K/mm3 (0.00-0.10); Basophils Percent Auto 0.6 % (0.0-1.0); Hematocrit 45.6 % (35.0-42.0); Immature Granulocyte Absolute 0.22 K/mm3 (0.00-0.00); Immature Granulocyte Percent A 1.4 % (0.0-0.0); Lymphocytes Percent Auto 25.9 % (18.0-42.0); Mean Corpuscular HGB Conc 32.9 g/dL (32.0-36.0); Mean Corpuscular Hemoglobin 30.7 pg (27.0-31.0); Mean Corpuscular Volume 93.4 fL (78.0-102.0); Mean Platelet Volume 10.2 fl (9.2-11.8); Monocytes Absolute Auto 1.02 K/mm3 (0.10-0.90); Monocytes Percent Auto 6.4 % (2.0-11.0); Neutrophils Absolute Auto 10.4 K/mm3 (1.7-7.2); Neutrophils Percent Auto 65.7 % (50.0-70.0); Platelet Count Result 408 K/mm3 (150-420); Red Blood Count 4.88 M/mm3 (4.20-5.40); Red Cell Distribution Width 11.9 % (11.6-14.4); White Blood Count 15.8 K/mm3 (4.8-10.8)
[2020-01-15 06:23] LABS: Alanine Aminotransferase 58 U/L (14-59); Alkaline Phosphatase 57 U/L (46-116); Anion Gap 3 mmol/L (8-16); Aspartate Amino Transferase 21 U/L (15-37); Bilirubin,Total 0.6 mg/dL (0.00-1.00); Blood Urea Nitrogen 37 mg/dL (7-18); Calcium 8.7 mg/dL (8.5-10.1); Carbon Dioxide 31 mmol/L (21-32); Chloride 99 mmol/L (98-108); Estimated CRCL calculation 34 ml/min; Estimated Glomerular Filt Rate 54; Glucose 124 mg/dL (70-99); Osmolality Calculated 285 mOsm/kg (285-295); Phosphorus 4.1 mg/dL (2.6-4.7); Potassium 4.5 mmol/L (3.5-5.1); Sodium 133 mmol/L (136-145); Total Protein 5.9 g/dL (6.4-8.2)
[2020-01-15 08:00] VITALS: BP 120/62; PULSE 73
--- NOTE | 2020-01-15 08:00 | PC.NURSE ---
In chair eating breakfast, no needs voiced, visited on phone this am with son
[2020-01-15 08:48] VITALS: PULSE 73
[2020-01-15] MEDS: LIDOCAINE 5% PATCH 3 PATCH TRANSDERM (08:48)
[2020-01-15] MEDS: METOPROLOL TARTRATE 25 MG TABLET PO ×2 (08:48→21:15)
[2020-01-15] MEDS: ACETAMINOPHEN 500 MG TABLET 1000 MG PO ×3 (08:48→16:54)
[2020-01-15] MEDS: ASCORBIC ACID 500 MG TABLET PO (08:49)
[2020-01-15] MEDS: DEXAMETHASONE 4 MG TABLET 6 MG PO (08:49)
[2020-01-15] MEDS: CHOLECALCIFEROL 1,000 UNIT TABLET 1000 UNITS PO (08:49)
[2020-01-15] MEDS: GABAPENTIN 100 MG CAPSULE 300 MG PO ×3 (08:49→16:54)
[2020-01-15] MEDS: APIXABAN 2.5 MG TABLET 5 MG PO ×2 (08:50→21:15)
[2020-01-15 09:07] LABS: Add Urine Microscopic? YES; Appearance Urine Clear (Clear); Bilirubin Urine Negative (Negative); Blood Urine Negative (Negative); Color Urine Yellow (Yellow); Glucose Urine UA Negative (Negative); Ketones Urine Negative (Negative); Leukocyte Esterase Ur 1+ (Negative); Nitrate Urine Negative (Negative); Protein Urine Negative (Negative); Specific Grav Ur <= 1.005 (1.010-1.020); Urobilinogen Urine 0.2 mg/dL (0.2-1.0); pH Urine 6.5 (5.0-8.0)
[2020-01-15] MEDS: lisinopriL 20 MG TABLET PO (09:09)
[2020-01-15 09:12] LABS: Bacteria Urine Trace /hpf; RBC Urine 0-2 /hpf (0-2); Squamous Epithelial Cell Urine Rare /hpf (Few)
--- NOTE | 2020-01-15 10:00 | PC.NURSE ---
Remains in chair, offered toileting and return to bed, denies need, call light in reach
--- NOTE | 2020-01-15 12:00 | PC.NURSE ---
Eating lunch, feeds self, denies needs, oriented to person and place
--- NOTE | 2020-01-15 14:00 | PC.NURSE ---
In bed watching TV, denies needs
[2020-01-15 16:00] VITALS: BP 115/72; PULSE 79; RESP 16; TEMP 36.2; O2SAT 94
[2020-01-16] VITALS: BP 115/53; PULSE 88; RESP 16; TEMP 36.3; O2SAT 94
[2020-01-16 07:59] LABS: Glucose Point of Care 219 (65-105)
[2020-01-16 08:00] VITALS: BP 137/88; PULSE 80; RESP 16; TEMP 36.4; O2SAT 95
[2020-01-16 08:02] LABS: Glucose Point of Care 124 (65-105)
[2020-01-16] MEDS: LIDOCAINE 5% PATCH 3 PATCH TRANSDERM (09:24)
[2020-01-16] MEDS: CHOLECALCIFEROL 1,000 UNIT TABLET 1000 UNITS PO (09:25)
[2020-01-16] MEDS: DEXAMETHASONE 4 MG TABLET 6 MG PO (09:25)
[2020-01-16] MEDS: GABAPENTIN 100 MG CAPSULE 300 MG PO ×3 (09:26→17:24)
[2020-01-16 09:27] VITALS: PULSE 111
[2020-01-16] MEDS: lisinopriL 20 MG TABLET PO (09:27)
[2020-01-16] MEDS: ACETAMINOPHEN 500 MG TABLET 1000 MG PO ×3 (09:27→17:24)
[2020-01-16] MEDS: METOPROLOL TARTRATE 25 MG TABLET PO ×2 (09:27→21:10)
[2020-01-16] MEDS: ASCORBIC ACID 500 MG TABLET PO (09:27)
[2020-01-16] MEDS: APIXABAN 2.5 MG TABLET 5 MG PO ×2 (09:27→21:10)
[2020-01-16 11:45] LABS: Glucose Point of Care 98 (65-105)
[2020-01-16] MEDS: BACLOFEN 10 MG TABLET PO (14:16)
[2020-01-16 15:41] VITALS: BP 137/74; PULSE 70; RESP 18; TEMP 36.5; O2SAT 93
[2020-01-16 17:12] LABS: Glucose Point of Care 133 (65-105)
[2020-01-16 21:21] LABS: Glucose Point of Care 161 (65-105)
[2020-01-17 00:20] VITALS: BP 123/66; PULSE 56; RESP 18; TEMP 36.2; O2SAT 94
[2020-01-17 07:52] LABS: Glucose Point of Care 113 (65-105)
[2020-01-17 08:00] VITALS: BP 164/81; PULSE 81; RESP 16; TEMP 36.6; O2SAT 95
[2020-01-17] MEDS: LIDOCAINE 5% PATCH 3 PATCH TRANSDERM (09:06)
[2020-01-17] MEDS: CHOLECALCIFEROL 1,000 UNIT TABLET 1000 UNITS PO (09:06)
[2020-01-17] MEDS: lisinopriL 20 MG TABLET PO (09:06)
[2020-01-17 09:07] VITALS: PULSE 81
[2020-01-17] MEDS: ACETAMINOPHEN 500 MG TABLET 1000 MG PO ×3 (09:07→17:02)
[2020-01-17] MEDS: DEXAMETHASONE 4 MG TABLET 6 MG PO (09:07)
[2020-01-17] MEDS: METOPROLOL TARTRATE 25 MG TABLET PO ×2 (09:07→20:29)
[2020-01-17] MEDS: APIXABAN 2.5 MG TABLET 5 MG PO ×2 (09:07→20:29)
[2020-01-17] MEDS: ASCORBIC ACID 500 MG TABLET PO (09:08)
[2020-01-17] MEDS: GABAPENTIN 100 MG CAPSULE 300 MG PO ×3 (09:08→17:02)
[2020-01-17 10:13] LABS: Hematocrit 47.2 % (35.0-42.0); Hemoglobin 15.1 g/dL (11.7-13.8); Mean Corpuscular Hemoglobin 30.4 pg (27.0-31.0); Mean Corpuscular Volume 95.2 fL (78.0-102.0); Mean Platelet Volume 10.2 fl (9.2-11.8); Platelet Count Result 442 K/mm3 (150-420); Red Blood Count 4.96 M/mm3 (4.20-5.40); Red Cell Distribution Width 11.9 % (11.6-14.4)
[2020-01-17 10:22] LABS: White Blood Count 20.1 K/mm3 (4.8-10.8)
[2020-01-17 10:38] LABS: Alanine Aminotransferase 51 U/L (14-59); Alkaline Phosphatase 57 U/L (46-116); Anion Gap 4 mmol/L (8-16); Aspartate Amino Transferase 17 U/L (15-37); Bilirubin,Total 0.6 mg/dL (0.00-1.00); Blood Urea Nitrogen 36 mg/dL (7-18); Calcium 9.2 mg/dL (8.5-10.1); Carbon Dioxide 33 mmol/L (21-32); Chloride 99 mmol/L (98-108); Estimated CRCL calculation 37 ml/min; Estimated Glomerular Filt Rate 60; Glucose 143 mg/dL (70-99); Osmolality Calculated 292 mOsm/kg (285-295); Potassium 4.8 mmol/L (3.5-5.1); Sodium 136 mmol/L (136-145); Total Protein 6.1 g/dL (6.4-8.2)
[2020-01-17 11:02] LABS: Band Neutrophils Percent 0 % (0-6); Lymphocytes Absolute Manual 3.81 K/mm3 (1.1-4.5); Lymphocytes Percent Manual 19 % (18-44); Neutrophils Absolute Manual 14.87 K/mm3 (1.7-7.2); Neutrophils Percent Manual 74 % (46-73); Total Cells Counted 100
[2020-01-17 11:03] LABS: Vitamin D 25 Hydroxy 62 ng/mL (30-100)
[2020-01-17 11:03] LABS: Basophils Percent Manual 0 % (0-1); Eosinophils Percent Manual 0 % (1-6); Monocytes Percent Manual 7 % (3-9); Platelet Estimate Adequate (Adequate)
[2020-01-17 11:43] LABS: Glucose Point of Care 115 (65-105)
[2020-01-17] MEDS: BACLOFEN 10 MG TABLET PO (12:51)
--- NOTE | 2020-01-17 13:22 | PM.IMPN ---
Progress Note: A&P Assessment and Plan (1) Atrial fibrillation with RVR: Code(s): I48.91 - Unspecified atrial fibrillation <Yari Mart NP - Last Filed: 01/17/20 13:48> Status: Acute <Yari Mart NP - Last Filed: 01/17/20 13:48> Assessment and Plan: Continue her Eliquis 5 mg every 12 hours continue her diltiazem 240 mg orally every morning continue lisinopril 20 mg daily continue metoprolol 50 mg every 12 hours continue hydralazine 10 mg oral every 8 hours as needed for elevated blood pressures with SBP > 160 continue vital signs and monitoring every 8 hours ordered admission EKG to be completed today vital signs have been stable and heart rate controlled and regular denies chest pain, chest pressure, or dyspnea no swelling to her legs or extremities, no crackles or wheezing with lung sounds monitor for any symptoms or signs of DVT or stroke Fall precautions , Rise slowly from a seated or lying position. WIll need to F/U with [facility] Dr[facility] Verduzco <Yari Mart NP - Last Filed: 01/17/20 13:48> (2) COVID-19 virus infection: Code(s): U07.1 - COVID-19 <Yari Mart NP - Last Filed: 01/17/20 13:48> Status: Acute <Yari Mart NP - Last Filed: 01/17/20 13:48> Assessment and Plan: IMPROVING. Swing Rehab to recover from positive COVID viral pneumonia admitted on January 05 to [facility] with acute respiratory distress with O2 saturations of 88% on room air. positive for COVID. completed a course of Rendesivir x5 days, and remains on oral dexamethasone. no coughing, no SOB, no chest or sinus congestion noted. remains on oral dexamethasone. VS Q 8 hours VS stable and on room air repeating CBC, CMP, ESR, CRP labs in the morning. Checking Phos, Vit D and C <Yari Mart NP - Last Filed: 01/17/20 13:48> (3) Hypertension: Qualifiers: Hypertension type: essential hypertension Qualified Code(s): I10 - Essential (primary) hypertension <Yari Mart NP - Last Filed: 01/17/20 13:48> Code(s): I10 - Essential (primary) hypertension <Yari Mart NP - Last Filed: 01/17/20 13:48> Status: Acute <Yari Mart NP - Last Filed: 01/17/20 13:48> Assessment and Plan: CHRONIC. CONTROLLED. well controlled see Afib plan continue lisinopril 20 mg daily continue metoprolol 50 mg every 12 hours continue hydralazine 10 mg oral every 8 hours as needed for elevated blood pressures with SBP > 160 continue vital signs and monitoring every 8 hours vital signs have been stable and heart rate controlled and regular denies chest pain, chest pressure, or dyspnea no swelling to her legs or extremities, no crackles or wheezing with lung sounds WIll need to F/U with [facility] Dr[facility] Verduzco <Yari Mart NP - Last Filed: 01/17/20 13:48> (4) JOHNSON (dyspnea on exertion): Code(s): R06.00 - Dyspnea, unspecified <Yari Mart NP - Last Filed: 01/17/20 13:48> Status: Acute <Yari Mart NP - Last Filed: 01/17/20 13:48> Assessment and Plan: RESOLVED. appears to be improving currently off supplemental oxygen, SpO2 95-96% on room air encourage deep breathing may be related to COVID infection or may be related to new onset of AFib with RVR or related to advancing age with deconditioning Continue physical therapy/occupational therapy. Weaning from dexamethasone <Yari Mart NP - Last Filed: 01/17/20 13:48> (5) General weakness: Code(s): R53.1 - Weakness <Yari Mart NP - Last Filed: 01/17/20 13:48> Status: Acute <Yari Mart NP - Last Filed: 01/17/20 13:48> Assessment and Plan: Poor balance, Low endurance, Reduced Mobility, General Weakness noted during PT/OT evaluations may be due to advanced age, co-morbidities, and/or recent COVID infection on regular diet improve oral intake with additional dietary
[2020-01-17 15:23] VITALS: BP 123/54; PULSE 62; RESP 16; TEMP 36.2; O2SAT 95
--- NOTE | 2020-01-17 15:42 | PCOTNOTE ---
01/17/20 Pt declined afternoon OT txt / had just .
[2020-01-17 16:49] LABS: Glucose Point of Care 148 (65-105)
[2020-01-17 20:29] VITALS: PULSE 68
[2020-01-17 20:33] LABS: Glucose Point of Care 163 (65-105)
--- NOTE | 2020-01-17 23:53 | PC.NURSE ---
Up to bathroom with stand by assist only. Positioned self in bed. Call light in reach.
[2020-01-18] VITALS: BP 160/71; PULSE 60; RESP 20; TEMP 36.3; O2SAT 99
--- NOTE | 2020-01-18 01:23 | PC.NURSE ---
Patient is still awake. She is alternately sitting up on edge of bed and lying down. She appears worried. She stated her son came to see her and had a long talk and was coming back the next day. She was concerned because she couldn't recall what they talked about but knew it was important.
[2020-01-18] MEDS: BACLOFEN 10 MG TABLET PO (05:31)
[2020-01-18 07:20] VITALS: BP 156/65; PULSE 70; RESP 18; TEMP 36.5; O2SAT 93
[2020-01-18 07:44] LABS: Glucose Point of Care 92 (65-105)
[2020-01-18] MEDS: LIDOCAINE 5% PATCH 3 PATCH TRANSDERM (08:00)
[2020-01-18] MEDS: CHOLECALCIFEROL 1,000 UNIT TABLET 1000 UNITS PO (09:10)
[2020-01-18] MEDS: DEXAMETHASONE 4 MG TABLET PO (09:10)
[2020-01-18] MEDS: DEXAMETHASONE 4 MG TABLET 2 MG PO (09:10)
[2020-01-18] MEDS: ACETAMINOPHEN 500 MG TABLET 1000 MG PO ×2 (09:10→12:54)
[2020-01-18] MEDS: ASCORBIC ACID 500 MG TABLET PO (09:10)
[2020-01-18] MEDS: GABAPENTIN 100 MG CAPSULE 300 MG PO ×2 (09:10→12:54)
[2020-01-18] MEDS: lisinopriL 20 MG TABLET PO (09:10)
[2020-01-18 09:11] VITALS: PULSE 70
[2020-01-18] MEDS: APIXABAN 2.5 MG TABLET 5 MG PO (09:11)
[2020-01-18] MEDS: METOPROLOL TARTRATE 25 MG TABLET PO (09:11)
[2020-01-18 09:58] LABS: Hematocrit 44.1 % (35.0-42.0); Hemoglobin 14.1 g/dL (11.7-13.8); Mean Corpuscular Hemoglobin 29.7 pg (27.0-31.0); Mean Corpuscular Volume 92.8 fL (78.0-102.0); Mean Platelet Volume 10.2 fl (9.2-11.8); Platelet Count Result 499 K/mm3 (150-420); Red Blood Count 4.75 M/mm3 (4.20-5.40); Red Cell Distribution Width 11.9 % (11.6-14.4); White Blood Count 19.5 K/mm3 (4.8-10.8)
[2020-01-18 10:11] LABS: Alanine Aminotransferase 46 U/L (14-59); Albumin Level 3.1 g/dL (3.4-5.0); Alkaline Phosphatase 51 U/L (46-116); Anion Gap 6 mmol/L (8-16); Aspartate Amino Transferase 18 U/L (15-37); Bilirubin,Total 0.6 mg/dL (0.00-1.00); Blood Urea Nitrogen 39 mg/dL (7-18); Calcium 9.3 mg/dL (8.5-10.1); Carbon Dioxide 29 mmol/L (21-32); Chloride 97 mmol/L (98-108); Estimated CRCL calculation 37 ml/min; Estimated Glomerular Filt Rate 59; Glucose 167 mg/dL (70-99); Osmolality Calculated 287 mOsm/kg (285-295); Potassium 4.7 mmol/L (3.5-5.1); Sodium 132 mmol/L (136-145); Total Protein 6.1 g/dL (6.4-8.2)
--- NOTE | 2020-01-18 10:45 | PC.NURSE ---
Patient aware she is to be discharged today. Taken down for x-ray via wheelchair. Patient back to room, sitting up in recliner with BLE elevated. Denies any needs at this time. Son is to be here at 1300, bringing clothes for patient to change into.
--- NOTE | 2020-01-18 11:30 | PC.NURSE ---
Patient Sitting up in chair resting. BS check result was 70. Pt. encouraged to eat a good amount at lunch time. Denies any needs. Call light at side.
--- NOTE | 2020-01-18 11:52 | P.DS_ITS ---
DS: Admitting Diagnosis Admitting Diagnosis Admitting Diagnosis: Covid DS: Discharge Diagnosis Discharge Diagnosis (1) Atrial fibrillation with RVR: Code(s): I48.91 - Unspecified atrial fibrillation Status: Acute Assessment and Plan: * controlled * continue her diltiazem 240 mg daily,lisinopril 20 mg daily,Eliquis 5 mg Q12hr,metoprolol 50 mg Q12hr * follow-up with Dr. Stewart microphone boom operator (2) COVID-19 virus infection: Code(s): U07.1 - COVID-19 Status: Acute Assessment and Plan: * IMPROVING. * Swing Rehab to recover from positive COVID viral pneumonia * admitted on January 05 to [facility] with acute respiratory distress with O2 saturations of 88% on room air. positive for COVID. completed a course of Rendesivir x5 days, and remains on oral dexamethasone reduce the amount and will titrate off (3) Hypertension: Qualifiers: Hypertension type: essential hypertension Qualified Code(s): I10 - Essential (primary) hypertension Code(s): I10 - Essential (primary) hypertension Status: Acute Assessment and Plan: * CHRONIC. CONTROLLED. * refer to the AFib (4) JOHNSON (dyspnea on exertion): Code(s): R06.00 - Dyspnea, unspecified Status: Acute Assessment and Plan: * RESOLVED. * secondary to COVID-19 * refer to Covid (5) General weakness: Code(s): R53.1 - Weakness Status: Acute Assessment and Plan: * secondary to COVID-19 * patient discharge out of the rehab program early due to of her that occurred 01/17/2020 * patient's also tested COVID-19 and at [facility] yesterday. * family requested that patient discharged home. * according to nursing staff patient is stable and safe to discharge (6) Confusion and disorientation: Code(s): R41.0 - Disorientation, unspecified Status: Acute Assessment and Plan: * mild Confusion may be related to virus, undiagnosed dementia, and recent hospitilization * now off COVID isolation. * patient will follow-up with primary care physician DS: Summary Time Spent with Patient Time attestation: Total time spent providing and/or coordinating discharge services: Exam Narrative: Exam Narrative: General: A well-developed, well-nourished male sitting up in bed no acute distress. HEENT: Normocephalic, atraumatic. PERRL, EOMI. Sclerae anicteric. Oral mucosa moist. Oropharynx clear. Neck: Supple. Respiratory: Lungs are clear to auscultation bilaterally. Cardiovascular: Regular rate and rhythm with S1-S2. Gastrointestinal: Abdomen is soft, nontender, and nondistended with positive bowel sounds. No organomegaly. Skin: Warm, dry, and slightly pale.. No rash or lesions on limited exam. Extremities: No cyanosis, clubbing, or edema. Radial and pedal pulses intact. Neurological: Alert. Cranial nerves 2-12 are grossly intact. No gross focal deficits to casual conversation. Psychiatric: Pleasant and cooperative with normal mood and affect. Judgment and insight intact. review of systems-10 point review of system negative DS: Data Data Completed and Pending Labs on day of discharge: Labs from last 24 hours 01/18/20 01/18/20 01/18/20 09:39 09:39 07:32 WBC 19.5 H RBC 4.75 Hgb 14.1 H Hct 44.1 H MCV 92.8 MCH 29.7 MCHC 32.0 RDW 11.9
--- NOTE | 2020-01-18 11:52 | PM.DS ---
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 Swing Rehab to recover from positive COVID viral pneumonia admitted on January [address] [facility] with acute respiratory distress with O2 saturations of 88% on room air. positive for COVID. completed a course of Rendesivir x5 days, and remains on oral dexamethasone reduce the amount and will titrate off (3) Hypertension: Qualifiers: Hypertension type: essential hypertension Qualified Code(s): I10 - Essential (primary) hypertension Code(s): I10 - Essential (primary) hypertension Status: Acute Assessment and Plan: CHRONIC. CONTROLLED. refer to the AFib (4) JOHNSON (dyspnea on exertion): Code(s): R06.00 - Dyspnea, unspecified Status: Acute Assessment and Plan: RESOLVED. secondary to COVID-19 refer to Covid (5) General weakness: Code(s): R53.1 - Weakness Status: Acute Assessment and Plan: secondary to COVID-19 patient discharge out of the rehab program early due to of her that occurred 01/17/2020 patient's also tested COVID-19 and at [facility] yesterday. family requested that patient discharged home. according to nursing staff patient is stable and safe to discharge (6) Confusion and disorientation: Code(s): R41.0 - Disorientation, unspecified Status: Acute Assessment and Plan: mild Confusion may be related to virus, undiagnosed dementia, and recent hospitilization now off COVID isolation. patient will follow-up with primary care physician DS: Summary Time Spent with Patient Time attestation: Total time spent providing and/or coordinating discharge services: Exam Narrative: Exam Narrative: General: A well-developed, well-nourished male sitting up in bed no acute distress. HEENT: Normocephalic, atraumatic. PERRL, EOMI. Sclerae anicteric. Oral mucosa moist. Oropharynx clear. Neck: Supple. Respiratory: Lungs are clear to auscultation bilaterally. Cardiovascular: Regular rate and rhythm with S1-S2. Gastrointestinal: Abdomen is soft, nontender, and nondistended with positive bowel sounds. No organomegaly. Skin: Warm, dry, and slightly pale.. No rash or lesions on limited exam. Extremities: No cyanosis, clubbing, or edema. Radial and pedal pulses intact. Neurological: Alert. Cranial nerves 2-12 are grossly intact. No gross focal deficits to casual conversation. Psychiatric: Pleasant and cooperative with normal mood and affect. Judgment and insight intact. review of systems-10 point review of system negative DS: Data Data Completed and Pending Labs on day of discharge: Labs from last 24 hours 01/18/20 01/18/20 01/18/20 09:39 09:39 07:32 WBC 19.5 H RBC 4.75 Hgb 14.1 H Hct 44.1 H MCV 92.8 MCH 29.7 MCHC 32.0 RDW 11.9 Plt Count 499 H MPV 10.2 Sodium 132 L Potassium 4.7 Chloride 97 L Carbon Dioxide 29 Anion Gap 6 L BUN 39 H Creatinine 0.91 Estim Creat Clear Calc 37 Estimated GFR 59 Glucose 167 H POC Capillary Glucose 92 Calculated Osmolality 287 Calcium 9.3 Total Bilirubin 0.6 AST 18 ALT 46 Alkaline Phosphatase 51 Total Protein 6.1 L Albumin 3.1 L 01/17/20 01/17/20 20:31 16:48 WBC RBC Hgb Hct MCV MCH MCHC RDW Plt Count MPV Sodium Potassium Chloride Carbon
[2020-01-18 11:58] LABS: Glucose Point of Care 70 (65-105)
--- NOTE | 2020-01-18 13:20 | PC.NURSE ---
Patients son here. Nurse assisted patient to gather belongings together and get dressed in street clothes. All discharge instructions and education reviewed with patient and son. Patient states understanding. Patient accompanied to front door via wheelchair by this nurse. Left facility via private vehicle with son. Patient denies any questions at time of discharge.
== END 2020-01-18 13:20 | disposition home or self-care (01) | DRG 179 ==
PROVIDERS: Nurse Practitioner; Admitting Provider Emergency Medicine; PCP Family Medicine; Visit Provider Emergency Medicine
DX: U07.1 COVID-19 (principal); I48.91 Unspecified atrial fibrillation; R53.1 Weakness; I10 Essential (primary) hypertension; J44.9 Chronic obstructive pulmonary disease, unspecified; Z87.891 Personal history of nicotine dependence
CPT/HCPCS: 36415; 71046; 80053; 81001; 82306; 84100; 85025; 85027; 87077; 87086; 87088; 87186; 93005; 97110; 97116; 97161; 97165; 97530; 97535; A9270; J8540

== ENCOUNTER 2020-08-14 11:29 | Inpatient (IN) | payer MEDICARE, OTHER, SELFPAY ==
[2020-08-14] VITALS (14 sets, daily range): BP systolic 152–203; BP diastolic 72–111; PULSE 60–103; RESP 16–24; TEMP 35.9–37; O2SAT 90–99; BMI 23.6
--- NOTE | ~2020-08-14 | XR_ITS ---
EXAMINATION: XR chest 2V DATE: 08/14/2020 12:17 INDICATION: Weakness and shortness of breath TECHNIQUE: AP and lateral views of the chest are obtained. COMPARISON: 01/18/2020 FINDINGS: There are small pleural effusions. Airspace opacities are present in the upper lung zones, lung bases, and left midlung zone. There is no pneumothorax. The heart size is normal. There is a T7 compression fracture with interval worsening and a new compression fracture of the T8 vertebral body. IMPRESSION: 1. Diffuse bilateral airspace opacities which could reflect pneumonia and/or atelectasis and/or pulmo nary edema. 2. Small pleural effusions. Reviewed, dictated and finalized at location A. DISTRIBUTION EXECUTIVE IMPRESSION: 1. Diffuse bilateral airspace opacities which could reflect pneumonia and/or at electasis and/or pulmonary edema. 2. Small pleural effusions.
--- NOTE | 2020-08-14 11:43 | ECG_ITS ---
Measurements Intervals [place] Rate: 82 P: 51 NV: 135 QRS: 58 QRSD: 88 T: 59 QT: 365 QTc: 428 Interpretive Statements SINUS RHYTHM CANNOT RULE OUT SEPTAL INFARCT, AGE INDETERMINATE BORDERLINE ST-T WAVE ABNORMALITY- HIGH LATERAL LEADS BASELINE ARTIFACT- I, II, III, AVR, AVL, AVF, V1-V6 ABNORMAL ECG Electronically Signed On 08-14-2020 12:04:13 MICROSTRATEGY ARCHITECT by Lucien Gaffney D.O.
[2020-08-14 12:31] LABS: Basophils Absolute Auto 0.1 K/mm3 (0.0-0.1); Basophils Percent Auto 0.7 % (0.2-1.2); Eosinophils Percent Auto 0.2 % (0-4.4); Hematocrit 37.6 % (37.0-47.0); Hemoglobin 11.1 g/dL (12.0-15.0); Immature Granulocyte Absolute 0.05 K/mm3 (0.00-0.031); Immature Granulocyte Percent A 0.6 % (0-0.5); Lymphocytes Absolute Auto 0.95 K/mm3 (0.9-3.2); Lymphocytes Percent Auto 10.5 % (18.3-44.2); Mean Corpuscular HGB Conc 29.5 g/dl (32-36); Mean Corpuscular Hemoglobin 26.8 pg (26-34); Mean Corpuscular Volume 90.8 fl (80-100); Monocytes Absolute Auto 0.9 K/mm3 (0.1-0.6); Monocytes Percent Auto 9.4 % (2.6-8.5); Neutrophils Absolute Auto 7.2 K/mm3 (1.3-6.7); Neutrophils Percent Auto 78.6 % (45.5-73.1); Platelet Count Result 418 k/mm3 (150-375); Red Blood Count 4.14 M/mm3 (4.2-5.4); Red Cell Distribution Width 14.9 % (11.5-14.5); White Blood Count 9.1 K/mm3 (4.5-10.0)
[2020-08-14 12:46] LABS: Alanine Aminotransferase 24 U/L (4-35); Albumin Level 3.3 g/dL (3.5-5.1); Alkaline Phosphatase 115 U/L (38-126); Aspartate Amino Transferase 27 U/L (14-36); Bilirubin,Total 0.4 mg/dL (0.2-1.3); Blood Urea Nitrogen 19 mg/dL (7-17); Calcium 8.8 mg/dL (8.4-10.2); Carbon Dioxide > 40 mmol/L (22-30); Chloride 101 mmol/L (98-107); Estimated CRCL calculation 55 ml/min; Estimated Glomerular Filt Rate > 60; Glucose 103 mg/dL (65-105); Potassium 3.6 mmol/L (3.4-5.0); Sodium 143 mmol/L (137-145)
[2020-08-14 12:52] LABS: Platelet Estimate Adequate (Adequate)
[2020-08-14 12:53] LABS: Polychromasia 1+ (NORMAL)
[2020-08-14 12:54] LABS: Anisocytosis 1+ (NORMAL)
[2020-08-14 12:56] LABS: Stomatocytes 1+ (NORMAL)
[2020-08-14 13:04] LABS: Add Urine Microscopic? YES; Amorphous Sediment Urine Few; Appearance Urine Cloudy (Clear); Bilirubin Urine Negative (Negative); Blood Urine Negative (Negative); Color Urine Yellow (Yellow); Glucose Urine UA Negative (Negative); Ketones Urine Negative (Negative); Leukocyte Esterase Ur Negative LEU/UL (Negative); Nitrate Urine Negative (Negative); Protein Urine 1+ mg/dL (Negative); RBC Urine 0-2 /hpf (0-2); Specific Grav Ur 1.013 (1.001-1.035); Squamous Epithelial Cell Urine Rare /hpf (Few); Urobilinogen Urine Negative mg/dL (<2.0); WBC Urine 0-3 /hpf
--- NOTE | 2020-08-14 13:15 | ED.WEAKNESS ---
HPI - Weakness General Chief complaint: Weakness Stated complaint: weakness Time Seen by Provider: 08/14/20 12:19 Source: family Mode of arrival: ambulatory Limitations: clinical condition and dementia History of Present Illness HPI Narrative: 80-year-old female O x2, and not a very good historian Patient is aware that she is at [facility] in the ER, and that she is here to get help with something, but she does not know what that is and does not report anything particular that is bothering her right now She denies specific symptoms of headache, she denies a fever or cough, she denies chest pain, she does say she has shortness of breath but that it is always present, no GI symptoms, and no urinary symptoms EMS reported that she was generally weak, and that there were apparently some family squabbles going on which might of precipitated the call They also reported that it appeared to them that the patient had stopped taking all of her prescription medications and was only taking vitamins She was hospitalized late last summer here for [employer], she was sent to a swing rehab but discharged from there early on when her passed from [employer] and her family decided that she was well enough for them to take her home according to the old records Complaint: generalized weakness Related Data Allergies Allergy/AdvReac Type Severity Reaction Status Date / Time No Known Allergies Allergy Verified 08/14/20 11:40 Review of Systems Review of Systems: All systems reviewed & are unremarkable except as noted in HPI and below Constitutional: Constitutional: Denies chills, Reports fatigue, Denies fever(s), Denies headache(s) and Reports weakness Eyes: Eyes: Reports no additional eye complaints and Denies change in vision ENT: Denies headache(s), Denies epistaxis, Denies nasal congestion and Denies sore throat Cardiovascular: Cardiovascular: Denies chest pain, Denies leg edema, Denies palpitations and Denies dyspnea Respiratory: Respiratory: Denies cough and Reports dyspnea Gastrointestinal: Gastrointestinal: Denies abdominal pain, Denies constipation, Denies diarrhea, Denies nausea and Denies vomiting Genitourinary: Genitourinary: Denies hematuria, Denies urinary frequency and Denies dysuria Musculoskeletal: Musculoskeletal: Reports back pain, Denies deformity, Reports arthralgias, Denies joint swelling, Denies muscle weakness and Denies numbness Integumentary/Breasts: Skin/Breast: Denies rash and Denies wounds Neurologic: Denies headache(s), Denies focal weakness and Denies numbness Psychiatric: Psychiatric: Reports no additional psychiatric complaints Endocrine: Endocrine: Reports fatigue and Denies palpitations Hematologic/Lymphatic: Hematologic/Lymphatic: Denies easy bleeding and Denies easy bruising Allergic/Immunologic: Allergic/Immunologic: Denies wheezing PMFSH Past Medical History Medical History (Updated 08/14/20 @ 14:55 by Alon Mayo MD) Acute respiratory failure due to COVID-19 Atrial fibrillation with RVR Chronic back pain Dextroscoliosis Hypertension Lipoma removed from chest Patient denies significant medical history Smoking history 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 Josh Del Cid. Surgical History Surgical History History of appendectomy Family History Family History Son Parkinson's disease Dementia associated with Parkinson's disease Son Wheelchair dependent Partial Amputation MVA (motor vehicle accident) Other No pertinent family history Unknown family medical history Social History Social History Social History: Patient and her live next door to their younger son Junaid ( [phone]) who is on disability but helps them out. The [facility]
[2020-08-14 13:30] LABS: Alveolar/Arterial O2 Gradient 14.7 mmHg; Base Excess ABG 12.4 mEq/l (+/-2.0); Fractional Inspired Oxygen 21 %; HCO3 ABG 40.3 mEq/l (22.0-26.0); Oxygen Content ABG 13.9 %vol (16.0-22.0); PO2 ABG 50.4 mmHg (80.0-100.0); Total Hemoglobin 12.1 g/dL (12.0-18.0); pH ABG 7.374 (7.350-7.450)
[2020-08-14 13:31] LABS: Device ROOM AIR; Modified Allen's Test Pass; Oxygen Saturation ABG 83.1 % (95.0-100.0); PCO2 ABG 70.7 mmHg (35.0-45.0); Site Drawn RIGHT RADIAL
[2020-08-14 14:00] LABS: NT Pro B Type Natriuretic Pept 4670 PG/ML (5-100); Troponin I 0.015 ng/mL (0.000-0.034)
--- NOTE | 2020-08-14 14:34 | PC.NURSE ---
1145- Was given in report by EMS per patient family at scene that patient has stopped taking all prescribed medications and sometimes takes vitamins. Son brought old medication bottles in. Son was not sure if she takes her medications as prescribed.
[2020-08-14] MEDS: ALBUTEROL SULFATE NEB 2.5 MG/0.5 ML INH 5 MG INHALATION ×2 (14:44→21:02)
[2020-08-14] MEDS: IPRATROPIUM BR 0.02% INH SOLN 0.5 MG/2.5 ML VIAL INHALATION ×2 (14:45→21:02)
--- NOTE | 2020-08-14 14:48 | PC.NURSE ---
1330 while sleeping pt 87-88% on room air. placed on 2L O2
[2020-08-14] MEDS: LABETALOL HCL INJ 100 MG/20 ML VIAL 20 MG IV PUSH (15:02)
[2020-08-14] MEDS: lisinopriL 20 MG TABLET PO (15:02)
--- NOTE | 2020-08-14 16:10 | PC.NURSE ---
This patient, Marie Moreira, was admitted to [facility] Surg Room 323-01. Patient/family oriented to hospital policies and general routines including ID bracelet, bed and alarms, visiting hours, pain management, procedures, bathroom and other care routines, personal items, smoking policy, room service/diet, and visiting hours. Information on how to activate the Rapid Response Team has been discussed. Patient/Family are encouraged to report perceived risks to care and to ask questions if they do not understand what they are told or what they should do.
--- NOTE | 2020-08-14 16:15 | PC.NURSE ---
Pt is unable to tell me what medications she takes or what pharmacy that she uses.
[2020-08-14] MEDS: LACTATED RINGERS 1,000 ML 75 ML IV CONT (16:21)
[2020-08-14] MEDS: ACETAMINOPHEN 325 MG TABLET 650 MG PO (18:42)
[2020-08-14] MEDS: FAMOTIDINE 20 MG/2 ML VIAL IV PUSH (20:39)
--- NOTE | 2020-08-14 21:43 | PM.IMHP ---
H&P: HPI History of Present Illness Date/Time: 08/14/20 21:43 80-year-old female patient who tells me that she lives home alone but her son lives next door to her. The patient had survived COVID infection from January of 2020. The [facility] had [facility] period time. The patient had been discharged relief from there early because her had from COVID. The patient did not qualify for home oxygen. The patient stated that she wants to go home tomorrow and that she is not short of breath. The patient was found to be hypoxic and oxygen was applied at 2 L per nasal cannula. The patient stated that she feels weak and she tells me that she has been taking her medication. However the family told the ER provider that she has not been taking her medications as prescribed. She has only been taking vitamin his. Arterial blood gases pH was normal and CO2 was 70.7. Chest x-ray was read as diffuse bilateral airspace opacity studies which could reflect pneumonia and/or atelectasis and/or pulmonary edema. Small pleural effusions. The patient was started on doxycycline and Rocephin. She was also given neb treatment in the emergency room and a dose of lisinopril and labetalol due to her hypertension. She is also given a dose of Decadron. She was swabbed for COVID 19 again. Patient has no fever, chills, or cough. The patient is being admitted to inpatient status on the date of service of 08/14/2020 Chief Complaint: sob Review of Systems Review of Systems: All systems reviewed & are unremarkable except as noted in HPI and below Constitutional: Constitutional: Reports as per HPI and Reports no additional constitutional complaints Eyes: Eyes: Reports as per HPI and Reports no additional eye complaints ENT: Reports system reviewed and no additional complaints, except as documented and Reports Normal hearing present Cardiovascular: Cardiovascular: Reports no additional cardiovascular complaints Respiratory: Respiratory: Reports no additional respiratory complaints and Reports no additional respiratory complaints Gastrointestinal: Gastrointestinal: Reports as per HPI and Reports no additional gastrointestinal complaints Musculoskeletal: Musculoskeletal: Reports no additional musculoskeletal complaints Integumentary/Breasts: Skin/Breast: Reports system reviewed and no additional complaints, except as docu and Reports as per HPI Neurologic: Reports system reviewed and no additional complaints, except as documented, Reports as per HPI and Reports Normal hearing present Psychiatric: Psychiatric: Reports no additional psychiatric complaints and Reports as per HPI Endocrine: Endocrine: Reports no additional endocrine complaints Hematologic/Lymphatic: Hematologic/Lymphatic: Reports no additional hematologic/lymphatic complaints Allergic/Immunologic: Allergic/Immunologic: Reports no additional allergic/immunologic complaints [facility] Past Medical History Medical History (Updated 08/14/20 @ 21:54 by Heidy Castro NP) Acute respiratory failure due to COVID-19 Atrial fibrillation with RVR Chronic back pain COVID-19 virus infection Dextroscoliosis Hypertension Lipoma removed from chest Patient denies significant medical history Smoking history 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 Josh Del Cid. Surgical History Surgical History History of appendectomy Family History Family History (Updated 08/14/20 @ 21:57 by Heidy Castro NP) Son Parkinson's disease Dementia associated with Parkinson's disease Son Wheelchair dependent Partial Amputation MVA (motor vehicle accident) Mother Breast cancer Father Lung cancer Sibling Lung cancer Other No pertinent family history Unknown family medical history Social History Social History (Updated 08/14/20 @ 22:01 by Heidy
[2020-08-14] MEDS: hydrALAZINE HCL 20 MG/ML VIAL 10 MG IV PUSH (23:00)
[2020-08-15] VITALS (13 sets, daily range): BP systolic 124–171; BP diastolic 65–87; PULSE 77–96; RESP 18–22; TEMP 35.9–36.7; O2SAT 80–96
[2020-08-15] MEDS: ACETAMINOPHEN 325 MG TABLET 650 MG PO ×2 (00:10→06:52)
[2020-08-15 01:17] LABS: SARS-CoV-2 RNA PCR Negative
[2020-08-15] MEDS: ALBUTEROL SULFATE NEB 2.5 MG/0.5 ML INH 5 MG INHALATION ×4 (02:28→19:55)
[2020-08-15] MEDS: IPRATROPIUM BR 0.02% INH SOLN 0.5 MG/2.5 ML VIAL INHALATION ×4 (02:28→19:55)
[2020-08-15] MEDS: LORazepam (*CRX) 0.5 MG TABLET PO (04:41)
--- NOTE | 2020-08-15 06:37 | PC.NURSE ---
Patient has gotten out of bed repeatedly through the night, setting off her bed alarm and frequently using the call light. When asked if she needed anything, she had multiple requests and complaints. Complaining at times of headache, backache, bathroom needs, and nervousness. christine Nunez put in a one time order for prn lorazepam which appeared to have very modest effects on her behavior. She pulled out her previous IV, had 2 episodes of incontinence, one of them being BM. She sat on the toilet multiple times with little results. Patient is already near the nurse's station and she is being closely watched through her room door.
[2020-08-15 06:58] LABS: Basophils Percent Auto 0.4 % (0.2-1.2); Hematocrit 36.8 % (37.0-47.0); Hemoglobin 10.9 g/dL (12.0-15.0); Immature Granulocyte Absolute 0.02 K/mm3 (0.00-0.031); Immature Granulocyte Percent A 0.3 % (0-0.5); Lymphocytes Absolute Auto 0.93 K/mm3 (0.9-3.2); Lymphocytes Percent Auto 12.5 % (18.3-44.2); Mean Corpuscular HGB Conc 29.6 g/dl (32-36); Mean Corpuscular Hemoglobin 26.3 pg (26-34); Mean Corpuscular Volume 88.7 fl (80-100); Mean Platelet Volume 9.7 fl (7.4-10.4); Monocytes Percent Auto 13.1 % (2.6-8.5); Neutrophils Absolute Auto 5.5 K/mm3 (1.3-6.7); Neutrophils Percent Auto 73.7 % (45.5-73.1); Platelet Count Result 366 k/mm3 (150-375); Red Blood Count 4.15 M/mm3 (4.2-5.4); Red Cell Distribution Width 14.9 % (11.5-14.5); White Blood Count 7.5 K/mm3 (4.5-10.0)
[2020-08-15 07:07] LABS: Alanine Aminotransferase 21 U/L (4-35); Albumin Level 2.9 g/dL (3.5-5.1); Alkaline Phosphatase 95 U/L (38-126); Aspartate Amino Transferase 27 U/L (14-36); Bilirubin,Total 0.4 mg/dL (0.2-1.3); Blood Urea Nitrogen 17 mg/dL (7-17); CRP 0.7 mg/dL (<1.0); Calcium 8.9 mg/dL (8.4-10.2); Carbon Dioxide > 40 mmol/L (22-30); Chloride 100 mmol/L (98-107); Estimated CRCL calculation 55 ml/min; Estimated Glomerular Filt Rate > 60; Glucose 96 mg/dL (65-105); Magnesium 1.7 mg/dL (1.6-2.3); Potassium 3.7 mmol/L (3.4-5.0); Sodium 140 mmol/L (137-145)
[2020-08-15 08:02] LABS: Hypochromasia 1+ (NORMAL); Platelet Estimate Adequate (Adequate)
[2020-08-15] MEDS: FAMOTIDINE 20 MG/2 ML VIAL IV PUSH ×2 (08:14→20:30)
[2020-08-15] MEDS: DEXAMETHASONE SOD PHOS INJ 4 MG/ML VIAL 6 MG IV PUSH (08:14)
[2020-08-15] MEDS: ENOXAPARIN 40 MG/0.4 ML SYRINGE SUB-Q (08:16)
[2020-08-15] MEDS: GABAPENTIN 100 MG CAPSULE 200 MG PO (16:08)
[2020-08-15] MEDS: busPIRone HCL 10 MG TABLET PO (16:08)
[2020-08-15] MEDS: HYDROcodone/acetaminophen (*CRX) 10-325 MG TABLET 1 TAB PO ×2 (16:09→20:35)
--- NOTE | 2020-08-15 16:18 | PM.IMPN ---
Progress Note: A&P Assessment and Plan (1) Pneumonia: Code(s): J18.9 - Pneumonia, unspecified organism Status: Acute Assessment and Plan: Pneumonia likley bacterial - pt is on azithromycin and Rocephin. breathing treatments. (2) Suspected 2019-nCoV infection: Code(s): Z20.828 - Contact with and (suspected) exposure to other viral communicable diseases Status: Ruled-out Assessment and Plan: Covid screen is negative (3) Hypertension: Qualifiers: Hypertension type: essential hypertension Qualified Code(s): I10 - Essential (primary) hypertension Code(s): I10 - Essential (primary) hypertension Status: Acute Assessment and Plan: Resume home medications. Subjective Date/time seen: 08/15/20 16:18 Interval history: 80-year-old female patient who tells me that she lives home alone but her son lives next door to her. The patient had survived COVID infection from January of 2020. Pt is still coughing and feel unwell. Review of Systems Review of Systems: All systems reviewed & are unremarkable except as noted in HPI and below Exam Resp: Effort & Inspection: normal respiratory effort Auscultation: clear to auscultation bilaterally Cardio: Rate: regular rate Rhythm: regular rhythm GI: Inspection: normal to inspection Auscultation: normal bowel sounds Neuro: General: oriented to person, oriented to place, oriented to time and patient oriented x3 Extrem: General: normal to inspection Psych: Attitude: cooperative Objective Data Vital Signs Vital Signs: Vital Signs - 24 hr 08/14/20 20:00 08/14/20 20:26 08/14/20 21:02 Temperature 37.0 C Pulse Rate 76 79 Respiratory Rate 20 18 Blood Pressure 168/75 H Pulse Oximetry 90 92 94 08/14/20 21:12 08/14/20 23:32 08/15/20 02:28 Temperature 35.9 C L Pulse Rate 83 86 88 Respiratory Rate 18 20 22 H Blood Pressure 152/72 H Pulse Oximetry 90 08/15/20 02:38 08/15/20 04:00 08/15/20 08:00 Temperature 35.9 C L Pulse Rate 84 77 84 Respiratory Rate 20 20 20 Blood Pressure 144/65 H Pulse Oximetry 96 80 L 08/15/20 08:10 08/15/20 08:24 08/15/20 14:00 Temperature 36.7 C Pulse Rate 82 84 92 Respiratory Rate 20 20 20 Blood Pressure 171/85 H Pulse Oximetry 80 L 96 08/15/20 14:03 08/15/20 14:14 Temperature Pulse Rate 96 95 Respiratory Rate 20 20 Blood Pressure Pulse Oximetry Intake/Output Intake/Output: Intake & Output 08/12/20 08/13/20 08/14/20 08/15/20 23:59 23:59 23:59 23:59 Intake Total 270 980 Output Total 0 700 Balance 270 280 Meds/Results Medications: Active Medications Generic Name Dose Route Start Last Admin Trade Name Freq PRN Reason Stop Dose Admin Acetaminophen 650 mg 08/14/20 14:48 08/15/20 06:52 Acetaminophen 325 Mg Tablet PO 650 mg Q4H PRN Administration Mild Pain (1-3) or Fever Hydrocodone Bitart/Acetaminophen 1 tab 08/15/20 13:32 08/15/20 16:09 Hydrocodone/Acetaminophen (*Crx) 10-325 Mg Tablet PO 1 tab PRN PRN Administration PAIN RATED 4-6 Albuterol 5 mg 08/14/20 20:00 08/15/20 14:02 Albuterol Sulfate Neb 2.5 Mg/0.5 Ml Inh INHALATION 5 mg Q6HRT MARY ELLEN Administration Buspirone HCl 10 mg 08/15/20 17:00 08/15/20 16:08 Buspirone Hcl 10 Mg Tablet PO 10 mg BID MARY ELLEN Administration Calcium Carbonate 500 mg 08/16/20 09:00 Calcium/Vitamin D 500 Mg Tablet BY MOUTH DAILY [facility] Dexamethasone Sodium Phosphate 6 mg 08/15/20 09:00 08/15/20 08:14 Dexamethasone Sod Phos Inj 4 Mg/Ml Vial IV PUSH 08/24/20 09:01 6 mg DAILY MARY ELLEN Administration Donepezil HCl 5 mg 08/15/20 21:00 Donepezil Hcl 5 Mg Tablet PO HS MARY ELLEN Enoxaparin Sodium 40 mg 08/15/20 09:00 08/15/20 08:16 Enoxaparin 40 Mg/0.4 Ml Syringe SUB-Q 40 mg DAILY MARY ELLEN Administration Famotidine 20 mg 08/14/20 21:00 08/15/20 08:14 Famotidine 20 Mg/2 Ml Vial IV PUSH 20 mg Q12HR MARY ELLEN A
[2020-08-15 17:10] LABS: Glucose Point of Care 116 (65-105)
[2020-08-15] MEDS: LIDOCAINE 5% PATCH 1 PATCH TRANSDERM (18:11)
[2020-08-15] MEDS: DONEPEZIL HCL 5 MG TABLET PO (20:30)
[2020-08-16] VITALS (12 sets, daily range): BP systolic 157–161; BP diastolic 63–75; PULSE 79–98; RESP 16–22; TEMP 36.3–37; O2SAT 84–100
[2020-08-16] MEDS: ALBUTEROL SULFATE NEB 2.5 MG/0.5 ML INH 5 MG INHALATION ×4 (03:20→20:34)
[2020-08-16] MEDS: IPRATROPIUM BR 0.02% INH SOLN 0.5 MG/2.5 ML VIAL INHALATION ×4 (03:20→20:34)
--- NOTE | 2020-08-16 04:15 | PC.NURSE ---
Daylight Savings Time For Daylight Savings Time Ending in the Fall - Clocks are moved back. For Daylight Savings Time Beginning in the Spring - Clocks are moved ahead. For [facility], the time of change occurs at 0200 hrs. Time is taken from the gravity prospecting observer. This entry on the patient's chart recognizes the change in time reflected during documentation. Example: 2 entries for vital signs may be charted for 0200 hrs.
[2020-08-16 06:33] LABS: Blood Urea Nitrogen 17 mg/dL (7-17); Calcium 8.4 mg/dL (8.4-10.2); Carbon Dioxide > 40 mmol/L (22-30); Chloride 98 mmol/L (98-107); Estimated CRCL calculation 42 ml/min; Estimated Glomerular Filt Rate > 60; Glucose 113 mg/dL (65-105); Potassium 3.3 mmol/L (3.4-5.0); Sodium 139 mmol/L (137-145)
[2020-08-16 06:53] LABS: Hemoglobin 10.4 g/dL (12.0-15.0); Mean Corpuscular HGB Conc 29.7 g/dl (32-36); Mean Corpuscular Hemoglobin 26.1 pg (26-34); Mean Corpuscular Volume 87.9 fl (80-100); Mean Platelet Volume 9.7 fl (7.4-10.4); Platelet Count Result 343 k/mm3 (150-375); Red Blood Count 3.98 M/mm3 (4.2-5.4); Red Cell Distribution Width 14.8 % (11.5-14.5); White Blood Count 9.5 K/mm3 (4.5-10.0)
[2020-08-16] MEDS: LIDOCAINE 5% PATCH 1 PATCH TRANSDERM (07:54)
[2020-08-16] MEDS: busPIRone HCL 10 MG TABLET PO ×2 (07:55→16:46)
[2020-08-16] MEDS: GABAPENTIN 100 MG CAPSULE 200 MG PO ×3 (07:57→16:47)
[2020-08-16] MEDS: DEXAMETHASONE SOD PHOS INJ 4 MG/ML VIAL 6 MG IV PUSH (07:57)
[2020-08-16] MEDS: lisinopriL 20 MG TABLET PO (07:58)
[2020-08-16] MEDS: FAMOTIDINE 20 MG/2 ML VIAL IV PUSH ×2 (07:59→22:10)
[2020-08-16] MEDS: MEMANTINE 10 MG TABLET PO (07:59)
[2020-08-16] MEDS: SERTRALINE HCL 50 MG TABLET 100 MG PO (08:00)
[2020-08-16] MEDS: MULTIVITAMINS THERAPEUTIC TAB (*BKC) 1 TABLET BY MOUTH (08:00)
[2020-08-16] MEDS: ENOXAPARIN 40 MG/0.4 ML SYRINGE SUB-Q (08:02)
[2020-08-16 08:14] LABS: Glucose Point of Care 82 (65-105)
[2020-08-16] MEDS: HYDROcodone/acetaminophen (*CRX) 10-325 MG TABLET 1 TAB PO ×3 (08:55→22:19)
[2020-08-16] MEDS: POTASSIUM CHLORIDE 20 MEQ TABLET 40 MEQ (12:00)
--- NOTE | 2020-08-16 12:04 | PM.IMPN ---
Progress Note: A&P Assessment and Plan (1) Pneumonia: Code(s): J18.9 - Pneumonia, unspecified organism Status: Acute Assessment and Plan: Azithromycin and ceftriaxone day 3 (2) Suspected 2019-nCoV infection: Code(s): Z20.828 - Contact with and (suspected) exposure to other viral communicable diseases Status: Ruled-out Assessment and Plan: Covid screen is negative (3) Hypertension: Qualifiers: Hypertension type: essential hypertension Qualified Code(s): I10 - Essential (primary) hypertension Code(s): I10 - Essential (primary) hypertension Status: Acute Assessment and Plan: 08/16 BP 157/75 Continue home medications. Subjective Date/time seen: 08/16/20 12:04 Interval history: 08/16: Ate well this AM. Denied pain or sob. Minimal cough. Review of Systems Review of Systems: All systems reviewed & are unremarkable except as noted in HPI and below Exam Narrative: Exam Narrative: HEENT: PERRL, sclerae nonicteric, pharyngeal mucosa pink and intact NECK: No JVD CHEST: Coarse BS and scattered crackles in bilateral lower lobes HEART: NL S1/S2, regular, no murmur ABDOMEN: BS+, soft, nontender, no mass, no bruits EXTREMITIES: No cyanosis, edema, or clubbing NEUROLOGIC: CN intact and symmetric to inspection. MUSCULOSKELETAL: Tone and strength symmetric. PSYCH: Alert. Oriented to person, place, but thought year was 2019 and did not know month Objective Data Vital Signs Vital Signs: Vital Signs - 24 hr 08/15/20 14:00 08/15/20 14:03 08/15/20 14:14 Temperature 98.0 F Pulse Rate 92 96 95 Respiratory Rate 20 20 20 Blood Pressure 171/85 H Pulse Oximetry 96 08/15/20 19:59 08/15/20 20:00 08/15/20 20:08 Temperature Pulse Rate 86 88 Respiratory Rate 20 20 Blood Pressure Pulse Oximetry 92 08/15/20 21:28 08/16/20 03:20 08/16/20 03:25 Temperature 98.1 F Pulse Rate 85 79 81 Respiratory Rate 18 20 20 Blood Pressure 124/87 Pulse Oximetry 90 08/16/20 06:00 08/16/20 07:52 08/16/20 07:53 Temperature 98.6 F Pulse Rate 81 98 98 Respiratory Rate 18 22 H Blood Pressure 157/75 H Pulse Oximetry 91 84 L 08/16/20 08:00 Temperature Pulse Rate 98 Respiratory Rate 22 H Blood Pressure Pulse Oximetry 84 L Intake/Output Intake/Output: Intake & Output 08/13/20 08/14/20 08/15/20 08/17/20 23:59 23:59 23:59 00:59 Intake Total 520 1520 240 Output Total 0 700 Balance 520 820 240 Meds/Results Medications: Active Medications Generic Name Dose Route Start Last Admin Trade Name Freq PRN Reason Stop Dose Admin Acetaminophen 650 mg 08/14/20 14:48 08/15/20 06:52 Acetaminophen 325 Mg Tablet PO 650 mg Q4H PRN Administration Mild Pain (1-3) or Fever Hydrocodone Bitart/Acetaminophen 1 tab 08/15/20 16:46 08/16/20 08:55 Hydrocodone/Acetaminophen (*Crx) 10-325 Mg Tablet PO 1 tab Q6H PRN Administration PAIN RATED 4-6 Albuterol 5 mg 08/14/20 20:00 08/16/20 07:48 Albuterol Sulfate Neb 2.5 Mg/0.5 Ml Inh INHALATION 5 mg Q6HRT MARY ELLEN Administration Buspirone HCl 10 mg 08/15/20 17:00 08/16/20 07:55 Buspirone Hcl 10 Mg Tablet PO 10 mg BID MARY ELLEN Administration Calcium Carbonate 500 mg 08/16/20 09:00 08/16/20 07:56 Calcium/Vitamin D 500 Mg Tablet BY MOUTH 500 mg DAILY MARY ELLEN Administration Dexamethasone Sodium Phosphate 6 mg 08/15/20 09:00 08/16/20 07:57 Dexamethasone Sod Phos Inj 4 Mg/Ml Vial IV PUSH 08/24/20 09:01 6 mg DAILY MARY ELLEN Administration Donepezil HCl 5 mg 08/15/20 21:00 08/15/20 20:30 Donepezil Hcl 5 Mg Tablet PO 5 mg HS MARY ELLEN Administration Enoxaparin Sodium 40 mg 08/15/20 09:00 08/16/20 08:02 Enoxaparin 40 Mg/0.4 Ml Syringe SUB-Q 40 mg DAILY MARY ELLEN Administration Famotidine 20 mg 08/14/20 21:00 08/16/20 07:59 Famotidine 20 Mg/2 Ml Vial IV PUSH 20 mg Q12HR MARY ELLEN Administration Gabapentin 200 mg 08/15/20 17:00 0
[2020-08-16] MEDS: POTASSIUM CHLORIDE 20 MEQ TABLET 40 MEQ PO (12:09)
[2020-08-16 12:19] LABS: Glucose Point of Care 119 (65-105)
[2020-08-16 17:13] LABS: Glucose Point of Care 99 (65-105)
[2020-08-16] MEDS: DONEPEZIL HCL 5 MG TABLET PO (22:09)
[2020-08-17] VITALS (20 sets, daily range): BP systolic 150–160; BP diastolic 61–73; PULSE 66–84; RESP 16–18; TEMP 36.5–37.1; O2SAT 82–98
[2020-08-17] MEDS: IPRATROPIUM BR 0.02% INH SOLN 0.5 MG/2.5 ML VIAL INHALATION ×4 (01:51→20:49)
[2020-08-17] MEDS: ALBUTEROL SULFATE NEB 2.5 MG/0.5 ML INH 5 MG INHALATION ×4 (01:51→20:49)
[2020-08-17 06:01] LABS: Blood Urea Nitrogen 19 mg/dL (7-17); Calcium 8.6 mg/dL (8.4-10.2); Carbon Dioxide > 40 mmol/L (22-30); Chloride 98 mmol/L (98-107); Estimated CRCL calculation 42 ml/min; Estimated Glomerular Filt Rate > 60; Glucose 88 mg/dL (65-105); Potassium 3.8 mmol/L (3.4-5.0); Sodium 138 mmol/L (137-145)
[2020-08-17 08:01] LABS: Glucose Point of Care 87 (65-105)
--- NOTE | 2020-08-17 08:08 | PC.NURSE ---
Patient refused cares and medications at the start of the shift, demanding to know where her son was. Frequently pushing on the call light, often several times a minute, and standing up in front of her chair. She asked to contact the police department to see if they could find him. She said she expected to pick him up tonight. She appeared to forget things she had been told minutes before, constantly going back to the idea that her son was coming to pick her up. She did remember things like her son's current hospitalization which was confirmed in detail with her other son. She also remembers her 's recent passing. Her memory appears to be fragmented and she shows symptoms of psychosis. Her son Junaid was called at 2229 in her room, confirming that he was not going to pick her up tonight. She continued to state that he still was. He called the nurse's station at 2250 to discuss his frustrations with his mother. He was told that he would be called only in the event of an emergency for the rest of the night. After she took a pain pill for her back, she appeared to get sleepy and an hour after administration she agreed to go to bed as long as we would call her when her son comes in.
[2020-08-17] MEDS: FAMOTIDINE 20 MG/2 ML VIAL IV PUSH ×2 (09:06→21:38)
[2020-08-17] MEDS: MULTIVITAMINS THERAPEUTIC TAB (*BKC) 1 TABLET BY MOUTH (09:06)
[2020-08-17] MEDS: busPIRone HCL 10 MG TABLET PO ×2 (09:06→17:32)
[2020-08-17] MEDS: ENOXAPARIN 40 MG/0.4 ML SYRINGE SUB-Q (09:06)
[2020-08-17] MEDS: MEMANTINE 10 MG TABLET PO (09:06)
[2020-08-17] MEDS: GABAPENTIN 100 MG CAPSULE 200 MG PO ×3 (09:06→17:32)
[2020-08-17] MEDS: SERTRALINE HCL 50 MG TABLET 100 MG PO (09:06)
[2020-08-17] MEDS: LIDOCAINE 5% PATCH 1 PATCH TRANSDERM (09:07)
[2020-08-17] MEDS: lisinopriL 20 MG TABLET PO (09:07)
[2020-08-17] MEDS: HYDROcodone/acetaminophen (*CRX) 10-325 MG TABLET 1 TAB PO ×3 (09:19→21:49)
--- NOTE | 2020-08-17 11:17 | WPDCDIQUERY2 ---
CDI Query Clarification Request -Pt family reported increase in SOB and increasing weakness. No home O2. -ABG's on 08/14: pH 7.374 pCO2 70.7 pO2 50.4 HCO3 40.3 O2 sat 83% on RA -O2 applied at 2L -08/15 at 0800 spot check on RA 80% and O2 reapplied -08/16 pt removed O2 and walked to bathroom- sats 84%, O2 reapplied -08/17 O2 at 1L- sats 82% so turned to 2L -Acute on chronic respiratory failure documented by EDP but no mention by hospitalist Please clarify if acute on chronic respiratory failure was ruled in or ruled out.
--- NOTE | 2020-08-17 13:51 | HOMEO2EVAL ---
Home Oxygen Evaluation RC: Home Oxygen (O2) Evaluation Start: 08/14/20 22:10 Freq: ONCE Status: Active Protocol: RPE Activity Type Activity Date Activity User E-Sign Co-Sign Detail Recorded Client Recorded Date Recorded By Document 08/17/20 13:29 [email or web address] [id number] 08/17/20 13:51 KRM Document 08/17/20 13:33 [email or web address] 08/17/20 13:51 KRM Document 08/17/20 13:35 [email or web address] [email or web address] 08/17/20 13:51 KRM Document 08/17/20 13:37 [email or web address] 08/17/20 13:51 KRM 08/17/20 08/17/20 08/17/20 13:29 13:33 13:35 Home O2 Evaluation Test Phase Resting Resting Exercise Oxygen Delivery Room Air Nasal Cannula Nasal Cannula Oxygen Flow Rate (L/min) 2 2 Pulse Oximetry (90-100 %) 82 L 90 84 L Pulse Rate (60-100 beats/min) 74 79 76 Activity Tolerance Fair Ambulation Distance (feet) Home Oxygen Evaluation Comments Treatment Charges O2 Evaluation - Inpatient 08/17/20 13:37 Home O2 Evaluation Test Phase Exercise Oxygen Delivery Nasal Cannula Oxygen Flow Rate (L/min) 4 Pulse Oximetry (90-100 %) 89 L Pulse Rate (60-100 beats/min) 79 Activity Tolerance Fair Ambulation Distance (feet) 25 Home Oxygen Evaluation Comments 2lpm at rest, 4 lpm with activity. Treatment Charges
--- NOTE | 2020-08-17 13:52 | PCRCNOTE ---
HOME O2 EVALUATION DONE, PT. REQUIRES 2LPM AT REST AND 4LPM WITH ACTIVITY. PT. DID NOT HAVE PREFERENCE ON DME. SET PT. UP WITH [facility] [phone]. TANK IN ROOM.
--- NOTE | 2020-08-17 14:02 | PM.IMPN ---
Progress Note: A&P Assessment and Plan (1) Pneumonia: Code(s): J18.9 - Pneumonia, unspecified organism Status: Acute Assessment and Plan: Pneumonia likley bacterial - pt is on azithromycin and Rocephin day 4. breathing treatments prn. Oxygen 2-4 liters (2) Suspected 2019-nCoV infection: Code(s): Z20.828 - Contact with and (suspected) exposure to other viral communicable diseases Status: Ruled-out Assessment and Plan: Covid screen is negative (3) Hypertension: Qualifiers: Hypertension type: essential hypertension Qualified Code(s): I10 - Essential (primary) hypertension Code(s): I10 - Essential (primary) hypertension Status: Acute Assessment and Plan: continue home medications. Bp is 160/73 Subjective Date/time seen: 08/17/20 14:02 Interval history: 80-year-old female patient who tells me that she lives home alone but her son lives next door to her. The patient had survived COVID infection from January of 2020. Pt is doing better, hopeful discharge tomorrow. Review of Systems Review of Systems: All systems reviewed & are unremarkable except as noted in HPI and below Exam Const: Orientation/consciousness: oriented to person, oriented to place, oriented to time and patient oriented x3 Resp: Effort & Inspection: normal respiratory effort Auscultation: clear to auscultation bilaterally Cardio: Rate: regular rate Rhythm: regular rhythm GI: Inspection: normal to inspection Auscultation: normal bowel sounds Neuro: General: oriented to person, oriented to place, oriented to time and patient oriented x3 Extrem: General: normal to inspection Psych: Attitude: cooperative Objective Data Vital Signs Vital Signs: Vital Signs - 24 hr 08/16/20 18:24 08/16/20 20:35 08/16/20 20:41 Temperature 36.5 C Pulse Rate 86 87 Respiratory Rate 20 20 Blood Pressure Pulse Oximetry 92 08/16/20 22:00 08/17/20 01:53 08/17/20 02:01 Temperature 36.7 C Pulse Rate 82 81 83 Respiratory Rate 16 18 18 Blood Pressure 158/63 H Pulse Oximetry 100 08/17/20 06:00 08/17/20 08:18 08/17/20 08:26 Temperature 36.5 C Pulse Rate 76 73 71 Respiratory Rate 18 16 18 Blood Pressure 160/73 H Pulse Oximetry 98 92 08/17/20 09:08 08/17/20 09:09 08/17/20 09:25 Temperature Pulse Rate Respiratory Rate Blood Pressure Pulse Oximetry 82 L 88 L 96 08/17/20 13:29 08/17/20 13:33 08/17/20 13:35 Temperature Pulse Rate 74 79 76 Respiratory Rate Blood Pressure Pulse Oximetry 82 L 90 84 L 08/17/20 13:37 Temperature Pulse Rate 79 Respiratory Rate Blood Pressure Pulse Oximetry 89 L Intake/Output Intake/Output: Intake & Output 08/14/20 08/15/20 08/16/20 08/17/20 22:59 22:59 23:59 23:59 Intake Total 420 Output Total 500 Balance -80 Meds/Results Medications: Active Medications Generic Name Dose Route Start Last Admin Trade Name Freq PRN Reason Stop Dose Admin Acetaminophen 650 mg 08/14/20 14:48 08/15/20 06:52 Acetaminophen 325 Mg Tablet PO 650 mg Q4H PRN Administration Mild Pain (1-3) or Fever Hydrocodone Bitart/Acetaminophen 1 tab 08/15/20 16:46 08/17/20 09:19 Hydrocodone/Acetaminophen (*Crx) 10-325 Mg Tablet PO 1 tab Q6H PRN Administration PAIN RATED 4-6 Albuterol 5 mg 08/14/20 20:00 08/17/20 08:15 Albuterol Sulfate Neb 2.5 Mg/0.5 Ml Inh INHALATION 5 mg Q6HRT MARY ELLEN Administration Buspirone HCl 10 mg 08/15/20 17:00 08/17/20 09:06 Buspirone Hcl 10 Mg Tablet PO 10 mg BID MARY ELLEN Administration Calcium Carbonate 500 mg 08/16/20 09:00 08/17/20 09:06 Calcium/Vitamin D 500 Mg Tablet BY MOUTH 500 mg DAILY MARY ELLEN Administration Donepezil HCl 5 mg 08/15/20 21:00 08/16/20 22:09 Donepezil Hcl 5 Mg Tablet PO 5 mg HS MARY ELLEN Administration Enoxaparin Sodium 40 mg 08/15/20 09:00 08/17/20 09:06 Enoxaparin 40 Mg/0.4 Ml Syringe SUB
--- NOTE | 2020-08-17 14:33 | PCOTNOTE ---
Attempted to see patient for OT, patient declined all ADLs, transfers, or UB exercises. Will continue plan of care as appropriate.
[2020-08-17] MEDS: DONEPEZIL HCL 5 MG TABLET PO (21:38)
[2020-08-18] VITALS (9 sets, daily range): BP systolic 162–164; BP diastolic 69–75; PULSE 70–86; RESP 16–20; TEMP 36.4; O2SAT 94–100
[2020-08-18] MEDS: IPRATROPIUM BR 0.02% INH SOLN 0.5 MG/2.5 ML VIAL INHALATION ×3 (01:34→14:11)
[2020-08-18] MEDS: ALBUTEROL SULFATE NEB 2.5 MG/0.5 ML INH 5 MG INHALATION ×3 (01:34→14:11)
[2020-08-18] MEDS: HYDROcodone/acetaminophen (*CRX) 10-325 MG TABLET 1 TAB PO (05:43)
[2020-08-18 08:20] LABS: Glucose Point of Care 96 (65-105)
[2020-08-18] MEDS: GABAPENTIN 100 MG CAPSULE 200 MG PO ×3 (08:48→16:41)
[2020-08-18] MEDS: LIDOCAINE 5% PATCH 1 PATCH TRANSDERM (08:49)
[2020-08-18] MEDS: ENOXAPARIN 40 MG/0.4 ML SYRINGE SUB-Q (08:49)
[2020-08-18] MEDS: FAMOTIDINE 20 MG/2 ML VIAL IV PUSH (08:49)
[2020-08-18] MEDS: lisinopriL 20 MG TABLET PO (08:49)
[2020-08-18] MEDS: SERTRALINE HCL 50 MG TABLET 100 MG PO (08:50)
[2020-08-18] MEDS: MULTIVITAMINS THERAPEUTIC TAB (*BKC) 1 TABLET BY MOUTH (08:50)
[2020-08-18] MEDS: busPIRone HCL 10 MG TABLET PO ×2 (08:50→16:41)
[2020-08-18] MEDS: MEMANTINE 10 MG TABLET PO (08:50)
[2020-08-18 09:58] LABS: Alveolar/Arterial O2 Gradient 74.2 mmHg; Base Excess ABG 10.7 mEq/l (+/-2.0); Fractional Inspired Oxygen 28 %; HCO3 ABG 37.7 mEq/l (22.0-26.0); Oxygen Content ABG 13.9 %vol (16.0-22.0); Oxyhemoglobin 85.9 % THb (90.0-100.0); PO2 ABG 50.7 mmHg (80.0-100.0); PO2 FiO2 Ratio Arterial Blood 1.81 %; Total Hemoglobin 11.5 g/dL (12.0-18.0); pH ABG 7.393 (7.350-7.450)
[2020-08-18 10:01] LABS: Oxygen Saturation ABG 84.5 % (95.0-100.0); PCO2 ABG 63.3 mmHg (35.0-45.0); Site Drawn RIGHT BRACHIAL
[2020-08-18 12:55] LABS: Glucose Point of Care 99 (65-105)
--- NOTE | 2020-08-18 15:28 | PCOTNOTE ---
Patient refused treatment this session due to feeling to tiered. Refused ADLs and arm ex. Will continue to attempt frequency.
--- NOTE | 2020-08-18 15:49 | PM.DS ---
DS: Admitting Diagnosis Admitting Diagnosis Admitting Diagnosis: Hypoxia DS: Discharge Diagnosis Discharge Diagnosis (1) Pneumonia: Code(s): J18.9 - Pneumonia, unspecified organism Status: Acute (2) Acute and chronic respiratory failure with hypercapnia: Code(s): J96.22 - Acute and chronic respiratory failure with hypercapnia Status: Acute (3) Hypertension: Qualifiers: Hypertension type: essential hypertension Qualified Code(s): I10 - Essential (primary) hypertension Code(s): I10 - Essential (primary) hypertension Status: Acute (4) Dementia: Code(s): F03.90 - Unspecified dementia without behavioral disturbance Status: Acute (5) Suspected 2019-nCoV infection: Code(s): Z20.828 - Contact with and (suspected) exposure to other viral communicable diseases Status: Ruled-out DS: Summary Hospital Course Reason for hospitalization: 80yo female with dementia, HTN and pAFib here for hypoxia. Please see H&P for details. Hospital Course: Patient presents feeling weak and found to have hypoxia. ABG showing 7.37/71/50 on room air. She was started on supplemental oxygen but not BiPAP. Chest x-ray showing diffuse bilateral airspace opacities that appeared worse in the left lower lobe. COVID was negative. BNP was 4670. Echo in January showing EF 60-65% with abnormal diastolic dysfunction and no pulmonary HTN. Troponin was negative. TSH was normal. UA was clear. CBC was essentially normal with slightly low hemoglobin of 11. LFTs were normal. Electrolytes are normal. CRP was normal. Blood culture negative to date. Patient was treated with Rocephin and azithromycin. She was started nebulizer treatments. Repeat ABG 7.39/63/51 on 2 L; however it was felt this is probably mixed venous given that her pulse ox was 94-100% at the time. Home O2 evaluation showed that she qualified for 2 L at rest and 4 L with activity. No apnea link was performed. Patient feels well and is requesting discharge. She has been up ambulating in the room. Discussed with son who is agreeable to take the patient home today. He is also agreeable to proceed with a outpatient sleep study at home. Unclear if she will wear the mask at night if it is required. She was noted to have a CT chest with pulmonary nodules in January. Son states no recent imaging that he is aware of so will order CT chest in 3-4 weeks to follow up on the PNA and the lung nodules. She does have a hx of cancer. Patient did well and was able to be discharged home 08/18/20 Status at Discharge Cognitive/behavioral status at discharge: stable Time Spent with Patient Time attestation: Total time spent providing and/or coordinating discharge services:35 Time spent: Greater than 30 minutes Specific discharge activities: Long discussion with son. All questions answered. Exam Narrative: Exam Narrative: AF 97.5 162/69 73 16 100% ra Gen - NARD Chest - few scattered inspiratory rhonchi o/w distatn BS CV - RRR S1/S2 Abd - Soft, NT/ND, Positive BS Ext - trace woody edema Neuro - Alert but confused Psych - pleasant and cooperative Skin - Warm and dry DS: Data Data Completed and Pending Labs on day of discharge: Labs from last 24 hours 08/18/20 08/18/20 08/18/20 11:36 09:30 08:06 Puncture Site Right brachial ABG pH 7.393 ABG pCO2 63.3 H* ABG pO2 50.7 L ABG PO2/FiO2 Ratio 1.81 ABG HCO3 37.7 H ABG O2 Saturation 84.5 L* ABG O2 Content 13.9 L ABG Base Excess 10.7 A-a Gradient 74.2 Oxyhemoglobin 85.9 L Total Hemoglobin 11.5 L O2 Delivery Device Not Reportable O2 Liters/Min 2.0 FiO2 28 POC Capillary Glucose 99 96 Preliminary micro results at discharge 08/14/20 15:03 Blood Culture - Preliminary Blood 08/14/20 15:08 Blood Culture - Preliminary Blood Discharge Plan Discharge Attending physician on discharge: Tj Dorantes Discharging
[2020-08-18] MEDS: AZITHROMYCIN 250 MG TABLET PO (16:46)
--- NOTE | 2020-08-19 10:06 | PC.NURSE ---
Script for Lidocaine patch called into [facility]. Left message for son.
== END 2020-08-18 17:45 | disposition home health service (06) | DRG 193 ==
LOC: ANHED 14:56 → ANH3MEDSUR 08-15 15:54
PROVIDERS: Emergency Medicine Emergency Medical Services; Family Medicine; Internal Medicine; Nurse Practitioner; Admitting Provider Internal Medicine; Emergency Provider Emergency Medicine; PCP Family Medicine; Visit Provider Internal Medicine
DX: J18.9 Pneumonia, unspecified organism (principal); J96.22 Acute and chronic respiratory failure with hypercapnia; Z20.822 Contact with and (suspected) exposure to COVID-19; F03.90 Unspecified dementia, unspecified severity, without behavioral disturbance, psychotic disturbance, mood disturbance, and anxiety; I48.0 Paroxysmal atrial fibrillation; I10 Essential (primary) hypertension; M54.9 Dorsalgia, unspecified; G89.29 Other chronic pain; M41.9 Scoliosis, unspecified; M47.816 Spondylosis without myelopathy or radiculopathy, lumbar region; Z79.899 Other long term (current) drug therapy; Z86.16 Personal history of COVID-19; Z87.891 Personal history of nicotine dependence
CPT/HCPCS: 36415; 36600; 71046; 80048; 80053; 81001; 82805; 82948; 83735; 83880; 84443; 84484; 85025; 85027; 86140; 87040; 93005; 94618; 94640; 97110; 97116; 97161; 97165; 99291; A9270; C9803; J0360; J0456; J0696; J1100; J1650; J7120; U0003; U0005